=== PATIENT | female | born 1945 | race Caucasian/White ===

== ENCOUNTER 2016-11-10 22:56 | Inpatient (IN) | payer MEDICARE ==
--- NOTE | ~2016-11-10 | EGD ---
EGD REPORT [facility] [address] [address] NAME: HORTENSIA AGUSTIN : [birth year] STATUS : ADM [place]ell PAT#: [id number] AGE: 70 ADM/REG DATE : 11/10/16 MR#: [id number] REPORT SERV DATE: 11/12/16 DICTATED BY: BRICE FINK DATE: 11/12/16 REPORT STATUS : Draft TRANSCRIBED BY: [facility] DATE: 11/12/16 Endoscopy Center Patient Name: Hortensia Agustin Date of : 1945 Attending MD: BRICE FINK MD Procedure Date No Time: 11/12/2016 Procedure: Upper GI endoscopy Indications: Melena Referring MD: SCOTT DIAZ Medicines: Monitored Anesthesia Care Complications: No immediate complications. Estimated blood loss: Minimal. Procedure: Pre-Anesthesia Assessment: - ASA Grade Assessment: III - A patient with severe systemic disease. After obtaining informed consent, the endoscope was passed under direct vision. Throughout the procedure, the patient's blood pressure, pulse, and oxygen saturations were monitored continuously. The GIF [id number] was introduced through the mouth, and advanced to the second part of duodenum. The upper GI endoscopy was accomplished without difficulty. The patient tolerated the procedure well. Findings: The examined esophagus was normal. The entire examined stomach was normal. Clotted blood was found in the duodenal bulb. Lavage of the area was performed using copious amounts of sterile water, resulting in clearance with excellent visualization. Despite a prolonged search > 30 minutes no source was found. No AVMs, ulcers, erosions or Dieulafoy lesions seen. No blood coming from the ampulla. The exam was otherwise without abnormality. Impression: - Blood in the duodenal bulb but a source could not be found. - The examination was otherwise normal. Recommendation: - Return patient to [facility] for [facility] care. - Repeat the upper endoscopy tomorrow for retreatment. Procedure Code(s): --- Professional --- 67972, Esophagogastroduodenoscopy, flexible, transoral; diagnostic, including collection of specimen(s) by brushing or washing, when performed (separate procedure) EGD REPORT [facility] [address] [facility] [place] [address] NAME: HORTENSIA AGUSTIN : [birth year] STATUS : ADM Lowell PAT#: [id number] AGE: 70 ADM/REG DATE : 11/10/16 MR#: [id number] REPORT SERV DATE: 11/12/16 DICTATED BY: BRICE FINK DATE: 11/12/16 REPORT STATUS : Draft TRANSCRIBED BY: [employer] DATE: 11/12/16 Diagnosis Code(s): --- Professional --- K92.2, Gastrointestinal hemorrhage, unspecified K92.1, Melena CPT copyright 2013 [employer]. All rights reserved. The codes documented in this report are preliminary and upon mortgage broker review may be revised to meet current compliance requirements. Brice Fink MD BRICE FINK MD 11/12/2016 11:27 AM This report has been signed electronically. Number of Addenda: 0 Note Initiated On: 11/12/2016 10:28 AM Scope Withdrawal Time 0 hours 0 minutes 0 seconds [address] [facility] [address] [place] [address]
--- NOTE | ~2016-11-10 | CN ---
Consultation Report [facility] [address] [place]. [address] NAME: MINDA AGUSTIN : [birth year] STATUS : ADM Lowell PAT#: [id number] AGE: 70 ADM/REG DATE : 11/10/16 MR#: [id number] REPORT SERV DATE: 11/11/16 DICTATED BY: FANNIE SORTO DATE: 11/11/16 REPORT STATUS : Draft TRANSCRIBED BY: MODL DATE: 11/11/16 GI CONSULTATION DATE OF CONSULTATION: 11/11/2016 REASON FOR CONSULTATION: Evaluation and management of dark tarry stools and acute blood loss anemia. HISTORY OF PRESENT ILLNESS: Ms Agustin is a 70-year-old female patient, known to Dr. Jenny Mi, as well as sees her nurse practitioner, Jose Maldonado in the office, who has a history of GI bleeding, history of diverticulosis, as well as AVMs, who presented to [facility] after she was seen by her primary care physician, Dr. Ricci. She states that for about three days, she has been seeing dark black stools, as well as she has experienced progressive shortness of breath with exertional dyspnea, as well as fatigue. She has had some mild nausea, but no emesis. She states that her bowel movements are roughly two times a day that they have turned very black and dark. She does not state tarry. She denies any hematochezia. She has a history of GI bleed in the past. She was last seen by Dr. Mi in August of 2016, where on September 01, she underwent an EGD, indication for that exam was melena. She had a findings of a regular Z-line at 40 cm, which was biopsied. She had a hiatal hernia, congestive gastropathy, and normal duodenum. She underwent colonoscopy the same day showing diverticulosis in the entire examined colon, diminutive polyp at the hepatic flexure removed, four nonbleeding colonic angioectasias that were treated with thermal therapy, normal examined ilium and internal hemorrhoids. Pathology from that exam on the EGD, the biopsy shows squamous and columnar-lined mucosa with moderate nongranulomatous chronic inflammation. No malignancy, dysphagia, or intestinal metaplasia or eosinophilia found. Hepatic flexure biopsy showed nonneoplastic mucosa with no adenoma being identified. She was last seen in our office in September of 2016. She had lab work done with a hemoglobin in our office, at that time being 12.8, hematocrit 38.2. In review of notes that the indication is anemia recurred and tarry stools, she would need a small-bowel capsule endoscopy. Presently, the patient's hemoglobin on admission was 8.2; she has dropped to her lowest point of 7; presently she is 7.1. She is still extremely fatigued. She denies any nausea at present. She has had no abdominal pain. No heartburn, indigestion, or reflux. I have discussed with her that we will plan on pursuing EGD with small-bowel capsule exam tomorrow on the . Risks, benefits, alternatives, and complications were detailed for her to include, but not limited to risk of bleeding, perforation, infection, reaction to medications with cardiac and pulmonary side effects. She does state that roughly around three years ago, she had similar symptoms and was seen at [place] and she did have a capsule endoscopy then, she reports as being negative. PAST MEDICAL HISTORY: Positive for diverticulosis, colon polyps, GI bleed, hypertension, hyperlipidemia, sleep apnea, GERD, hypertrophic cardiomyopathy, cardiac murmur. She is status post AICD pacemaker, back surgery, abdominal hysterectomy, and cataract surgery. ALLERGIES: PENICILLIN, MORPHINE, AND IBUPROFEN. Consultation Report [address] [place]. [address] NAME: MINDA AGUSTIN : [birth year] STATUS : ADM Lowell PAT#: [id number] AGE: 70 ADM/REG DATE : 11/10/16 MR#: [id number] REPORT SERV DATE: 11/11/16 DICTATED BY: FANNIE SORTO DATE: 11/11/16 REPORT STATUS : Draft TRANSCRIBED BY: ANA DATE: 11/11/16 HOME MEDICATIONS: Vitamin C, aspirin, atenolol, vitamin D, vitamin B12, Miladis, Lasix, Lopid, omeprazole, Zofran, potassium chloride, Phenergan, and tramadol. SOCIAL HISTORY: No alcohol, tobacco, or illicits. Past history of tobacco. She is . FAMILY HISTORY: Noncontributory from a GI standpoint. REVIEW OF SYSTEMS: A ten-point review of systems obtained. Pertinent positives being addressed in the history of present illness. PHYSICAL EXAMINATION: VITAL SIGNS: Temperature is 97.7, pulse 84, respirations 18, and blood pressure 102/52. NEURO: Reveals an alert, female, resting in bed with no focal deficits. GENERAL: Cooperative. She is in mild distress secondary to weakness, as well as some nausea. HEAD, EARS, EYES, NOSE, AND THROAT: Anicteric. Pupils are equal, round, reactive to light and accommodation. Normocephalic and atraumatic. NECK: No JVD. No palpable nodes. LUNGS: Diminished in the bases. Clear in the upper lobes. Normal respiratory effort exhibited. Equal expansion. CARDIOVASCULAR SYSTEM: Regular rate and rhythm, however, 3/6 murmur is auscultated without rubs or gallops. ABDOMEN: Soft, obese, nondistended, nontender. No rebound. No guarding. No organomegaly appreciated on exam. EXTREMITIES: No edema. Normal distal pulses. SKIN: Warm, dry, and intact. PERTINENT LABORATORY DATA: Sodium 144, potassium 3.8. BUN is 23, creatinine is 0.68. White count 5.4, hemoglobin 7.1, hematocrit 21.7, and platelet count 174. INR 1.1. ASSESSMENT: 1. Melena with gastrointestinal bleeding, as well as history of gastrointestinal bleed. She does have a history of colonic angioectasias and diverticular disease. Must rule out gastric and/or small bowel arteriovenous malformations. 2. Acute blood loss anemia. Hemoglobin in September of 2016, 12.8, presently on admission; she was 8.2, which has dropped to 7. 3. Weakness and exertional shortness of breath secondary to #2. 4. History of hypertrophic cardiomyopathy. PLAN: 1. EGD with small-bowel capsule endoscopy on the . 2. We will give her Mag citrate x2. 3. Clear liquid diet. N.p.o. after midnight. 4. Transfuse unit of packed red blood cells. Follow the Lasix. Consultation Report [id number] [facility] [place]. [address] NAME: MINDA AGUSTIN : [birth year] STATUS : ADM Lowell PAT#: [id number] AGE: 70 ADM/REG DATE : 11/10/16 MR#: [id number] REPORT SERV DATE: 11/11/16 DICTATED BY: FANNIE SORTO DATE: 11/11/16 REPORT STATUS : Draft TRANSCRIBED BY: DARRIONL DATE: 11/11/16 5. We will follow labs, as well as H and H, and transfuse if needed. DESIREE/ANA Fannie NELDA Espinoza / [id number] CC: MD Meka Max M.D.
--- NOTE | ~2016-11-10 | HP ---
History And Physical [facility] [address] [place]. [address] NAME: MINDA AGUSTIN : [birth year] STATUS : ADM Lowell PAT#: [id number] AGE: 70 ADM/REG DATE : 11/10/16 MR#: [id number] REPORT SERV DATE: 11/11/16 DICTATED BY: YAHAIRA UMANZOR DATE: 11/10/16 REPORT STATUS : Draft TRANSCRIBED BY: MODMike DATE: 11/10/16 DATE OF ADMISSION: 11/10/2016 POINT OF ENTRY: [facility] Emergency Department. PRIMARY CARE PHYSICIAN: Meka Ricci M.D. PRIMARY CERT OCCUPATIONAL THERAPY ASST: Dr. Mi. PRIMARY GRAIN COMBINE DRIVER: Formerly Dr. French, now Dr. Moise. CHIEF COMPLAINT: Weakness, abnormal labs. HISTORY OF PRESENT ILLNESS: Ms. Agustin is a 70-year-old female with history of hypertension, hyperlipidemia, known history of diverticulosis with prior GI bleeds in the past as well as history of hypertrophic cardiomyopathy, status post AICD insertion, who presents to the emergency department today at the assistance of her primary care physician for abnormal labs. The patient states that she was out of town recently, working on an but not doing any strenuous activity, and for the past three days, she has noticed progressive worsening weakness, fatigue, as well as dyspnea on exertion. Incidentally, during that same time, she has also noticed a three-day history of dark, almost black-colored stools, but denies any lynn hematochezia or melena. She returned back to [place] and scheduled an appointment with her primary care physician and saw her on Tuesday. Labs were drawn, and they were concerning for low hemoglobin and hematocrit, compared to her baseline concerning for possible GI bleed and she was instructed to present to the emergency department. Initial evaluation in the emergency department notable for a hemoglobin of 8.2, elevated BUN and creatinine ratio consistent with a GI bleed. Occult stool was not ordered by the ER physician. It is currently pending. She was subsequently admitted to the Hospitalist Service for further evaluation and management. She denies any recent fevers, night sweats, chills, chest pain, palpitations, cough, sputum production, abdominal pain, nausea, vomiting, diarrhea, constipation, dysuria, or lower extremity edema. REVIEW OF SYSTEMS: Comprehensive review of systems otherwise negative unless listed in history of present illness. PREVIOUS MEDICAL HISTORY: 1. Hypertension. 2. Hyperlipidemia. History And Physical [address] [place]. [address] NAME: MINDA AGUSTIN : [birth year] STATUS : ADM Lowell PAT#: [id number] AGE: 70 ADM/REG DATE : 11/10/16 MR#: [id number] REPORT SERV DATE: 11/11/16 DICTATED BY: YAHAIRA UMANZOR DATE: 11/10/16 REPORT STATUS : Draft TRANSCRIBED BY: ANA DATE: 11/10/16 3. Diverticulosis. 4. Obstructive sleep apnea. 5. Gastroesophageal reflux disease. 6. Prior history of GI bleed, most recent being 07/2016 at [facility]. 7. Hypertrophic cardiomyopathy, status post AICD insertion. SURGICAL HISTORY: 1. Back surgery. 2. Abdominal hysterectomy. 3. Cataract surgery. 4. AICD. ALLERGIES: PENICILLIN, MORPHINE, AND IBUPROFEN. HOME MEDICATIONS: 1. Vitamin C 500 mg daily p.r.n. 2. Aspirin 81 mg daily. 3. Atenolol 50 mg at bedtime. 4. Vitamin D 1000 units daily. 5. Vitamin B12 500 mcg daily. 6. Miladis 180 mg daily. 7. Lasix 40 mg daily p.r.n. 8. Lopid 600 mg b.i.d. 9. Omeprazole 20 mg at bedtime. 10.Zofran 4 mg daily p.r.n. 11.Potassium chloride 20 mEq daily p.r.n. 12.Phenergan 25 mg daily. 13.Tramadol 50 mg b.i.d. p.r.n. 14.Antibiotic for stye, no longer on antibiotics. SOCIAL HISTORY: Denies any tobacco, alcohol, or illicits. She is a former smoker. FAMILY MEDICAL HISTORY: Mother with history of stroke. Father with history of coronary artery disease. Siblings with history of stroke. LABS AND IMAGIN. White count is 8.7, hemoglobin is 8.2, hematocrit is 23.9, and platelet count is 192. INR is 1.1. 2. Sodium is 142, potassium 4.3, chloride 105, carbon dioxide 28, BUN 29, creatinine 0.96, glucose is 104, calcium is 9.0, protein 7.3, albumin 3.7, bilirubin is 0.3, ALT is 23, AST is 37, alkaline phosphatase is 97. 3. The patient underwent EGD and colonoscopy on 08/24/2016, which was notable for congestive gastropathy as well as multiple wide-mouth diverticula, occasional polyps, as well as for non-bleeding colonic angioectasias treated with thermal therapy. PHYSICAL EXAMINATION: VITAL SIGNS: Temperature is 98.7 degrees Fahrenheit, pulse is 95, respirations 16, History And Physical [address] [id number] [place]. [address] NAME: MINDA AGUSTIN : [birth year] STATUS : ADM Lowell PAT#: [id number] AGE: 70 ADM/REG DATE : 11/10/16 MR#: [id number] REPORT SERV DATE: 11/11/16 DICTATED BY: YAHAIRA UMANZOR DATE: 11/10/16 REPORT STATUS : Draft TRANSCRIBED BY: MODL DATE: 11/10/16 saturating 97% on room air, and blood pressure 111/57. On recheck, blood pressure is now 120/71, pulse of 82. GENERAL: The patient is awake, alert, in no acute distress, resting comfortably in bed. She is a well-developed, well-nourished, elderly female. HEENT: Atraumatic and normocephalic. Moist mucous membranes. Pupils equal, round, reactive to light and accommodation. Extraocular eye movements are intact. No scleral icterus. NECK: No jugular venous distention. No carotid bruits. CARDIAC: Regular rate and rhythm. She has a 3/6 systolic murmur, heard best over left lower sternal border. LUNGS: Clear to auscultation bilaterally. No wheezes, rhonchi, or crackles. ABDOMEN: Soft, nontender, nondistended with good bowel sounds. No rebound, guarding, or rigidity. EXTREMITIES: Warm and perfused. No cyanosis, clubbing, or edema. SKIN: Warm and dry. PSYCH: Affect appropriate. NEUROLOGIC: Alert and oriented x3. Cranial nerves 2 through 12 grossly intact. Speech is normal. Gait not assessed. ASSESSMENT: Ms. Agustin is a 70-year-old female who presents with a few day history of weakness, fatigue, shortness of breath, and dyspnea on exertion, and found to have abnormal hemoglobin and hematocrit, concerning for GI bleed. PROBLEM LIST: 1. GI bleed. 2. Acute blood loss anemia. 3. Weakness, fatigue, and shortness of breath. 4. History of hypertrophic cardiomyopathy. PLAN: 1. GI bleed. Occult stool is pending at the time of dictation, but given description of dark-colored stools, I suspect this might be an upper GI bleed. However, patient does have a history of diverticulosis as well as colonic angioectasias. We will place the patient on Protonix drip. Hold the patient's aspirin. Consult Dr. Mi, the patient's primary oncology rn, for assistance, and we will check q.6 hours hemoglobin and hematocrits. 2. Acute blood loss anemia. I do not have recent baseline for her except for something from 2014, but it has been at least 4 to 5 point drop since then. We will check q.6 hours hemoglobin and hematocrit and transfuse for hemoglobin less than 7. 3. Weakness, shortness of breath, and dyspnea on exertion. I suspect this is all due to symptomatic anemia from her GI bleed and acute blood loss anemia. However, given her history of HCM, we will check an EKG, chest x-ray, as well as consult Cardiology for assistance as she is scheduled to see Dr. Moise in clinic tomorrow. 4. History of HCM. Again, as mentioned above, we will consult Cardiology as well as check EKG and chest x-ray. The patient currently appears euvolemic at this time. 5. DVT prophylaxis. TEDs and SCDs given bleeding. CODE STATUS: The patient wishes to be full code. History And Physical [address] [address] NAME: MINDA AGUSTIN : [birth year] STATUS : ADM [place] PAT#: [id number] AGE: 70 ADM/REG DATE : 11/10/16 MR#: [id number] REPORT SERV DATE: 11/11/16 DICTATED BY: YAHAIRA UMANZOR DATE: 11/10/16 REPORT STATUS : Draft TRANSCRIBED BY: ANA DATE: 11/10/16 DALLIN/ANA Yahaira Umanzor MD / [id number] CC: MD Meka Max M.D. John Carter Hemphill, MD Colleen Schmitt, M.D.
--- NOTE | ~2016-11-10 | DS ---
Discharge Summary [facility] [address] [place]. [address] NAME: MINDA AGUSTIN : 49 STATUS : DIS IN PAT#: [id number] AGE: 70 ADM/REG DATE : 11/10/16 MR#: [id number] REPORT SERV DATE: 11/18/16 DICTATED BY: AL LEIJA DATE: 11/17/16 REPORT STATUS : Draft TRANSCRIBED BY: MODL DATE: 11/17/16 ADMISSION DATE: 11/10/2016 DISCHARGE DATE: 11/17/2016 Ms. Agustin is a 70-year-old female with a history of hypertension, hypertrophic cardiomyopathy and normocytic anemia, who presented to the emergency room with a complaint of weakness and abnormal labs. For further details, please refer to H and P dictated by Dr. Ponce on 11/11/2016. HOSPITAL COURSE: Please refer to interim discharge summary, dictated by Dr. Underwood on 11/16/2016. I assumed care of the patient, 11/16/2016. At the time of my visit, the patient was already status post with upper endoscopy, which noted no evidence of a bleed and she was also status post a video endoscopy, which noted AVM. The patient had an upper device assisted enteroscopy without fluoroscopy by GI with AVM bleed noted at the junction between the duodenum and jejunum. The lesion was cauterized and a clip placed. The patient tolerated the procedure well. She was returned to the medical floor where she remained hemodynamically stable. The patient was started on clear liquid diet, which she has tolerated. Her hemoglobin has remained stable with no further evidence of bleed. Given hemodynamic stability and completion of workup, the patient will be discharged home to follow up with her primary care physician. Plan has been discussed with patient who voices understanding. All other information noted, and the interim discharge summary remains the same. DISCHARGE MEDICATIONS: The patient discharged on her home medications with no new additions. Discharge medications include; atenolol 50 mg p.o. at bedtime, vitamin B12, 500 mcg p.o. daily, vitamin D 3000 units p.o. every morning; gemfibrozil 600 mg p.o. twice a day, Miladis 180 mg p.o. every morning, omeprazole 20 mg p.o. at bedtime, aspirin 81 mg p.o. every morning, potassium 20 mg mEq p.o. daily p.r.n., furosemide 40 mg g p.o. daily p.r.n. DISCHARGE EXAMINATION: VITAL SIGNS: Blood pressure 100/55, pulse of 81, respirations 20, O2 saturation 98% on room air, and temperature 97.8. GENERAL: The patent is sitting in chair, in no acute distress. Appears stated age. Eating breakfast. HEENT: Normocephalic and atraumatic. Extraocular motors intact. Moist oral mucosa. No conjunctival pallor noted. NECK: Trachea midline and symmetric. No JVD present. No thyromegaly noted. No lymphadenopathy noted. CHEST: Nontender to palpation. CARDIOVASCULAR: Positive 3/6 holosystolic murmur noted in the precordium. Regular rate and rhythm. LUNGS: Clear to auscultation bilaterally. ABDOMEN: Positive bowel sounds. Nontender. Nondistended. No masses palpated. EXTREMITIES: No cyanosis, no clubbing, no edema. NEURO: Alert and oriented x3. No focal deficits appreciated. DISPOSITION: The patient will be discharged home to follow up with primary care physician. Discharge Summary [address] [address] NAME: MINDA AGUSTIN : [birth year] STATUS : DIS IN PAT#: [id number] AGE: 70 ADM/REG DATE : 11/10/16 MR#: [id number] REPORT SERV DATE: 11/18/16 DICTATED BY: AL LEIJA DATE: 11/17/16 REPORT STATUS : Draft TRANSCRIBED BY: ANA DATE: 11/17/16 ACTIVITY: As tolerated. DIET: Regular diet. Greater than 30 minutes was spent coordinating care, dictation of note, medication reconciliation, and coordinating discharge. RAYMUNDO/ANA Al Leija MD / [id number] CC: MD Meka Vaz M.D.
--- NOTE | ~2016-11-10 | IDS ---
Interim Discharge Summary [facility] [address] [place]. [address] NAME: MINDA QUIROGA : [birth year] STATUS : ADM [place] PAT#: [id number] AGE: 70 ADM/REG DATE : 11/10/16 MR#: [id number] REPORT SERV DATE: 11/16/16 DICTATED BY: CARLEY CASTRO DATE: 11/15/16 REPORT STATUS : Draft TRANSCRIBED BY: MODMike DATE: 11/15/16 ADMISSION DATE: 11/10/2016 DISCHARGE DATE: DATE OF DISCHARGE: Pending. CURRENT DIAGNOSES: 1. Acute gastrointestinal bleed. 2. Normocytic anemia. 3. Acute blood loss anemia. 4. Hypertension. 5. Hypertrophic cardiomyopathy, status post AICD placement. 6. Obstructive sleep apnea, on CPAP. 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 CURRENT CONDITION: Stable. HISTORY OF PRESENT ILLNESS: For detailed HPI, please make reference to Dr. Matti Alarcon's on 11/11/2016. In brief, this is a 70-year-old female with medical history of hypertension, hyperlipidemia, hypertrophic cardiomyopathy, who has history of diverticulosis with recurrent GI bleed, who presented to the emergency room of [facility] with complaints of passing black stools. In the ER, was noted to have blood pressure of 111/57, saturating 97% on room air. Physical exam was significant for 3/6 systolic murmur. An assessment of GI bleed was made, acute blood loss anemia as well as hypertrophic cardiomyopathy status post AICD in the emergency room and was admitted to the hospital for further evaluation. HOSPITAL COURSE: 1. Gastrointestinal bleed. The patient's hemoglobin dropped to 6.1, received 2 units of blood transfusion. The patient's hemoglobin subsequently improved and has remained stable. The patient underwent an EGD that shows blood in the duodenal bulb, but source could not be found. It was recommended for the patient to undergo a video endoscopy. The patient subsequently underwent video endoscopy on 11/13/2016 that shows the presence of active bleeding from several spots between 40 minutes on 20 minutes into the study with additional spots with likely AVM seen in more distal portion of the small bowel. The patient was recommended to have a push enteroscopy or antegrade balloon enteroscopy to see if the area of bleeding can be reached. The patient will be undergoing a small bowel enteroscopy that will be performed by Dr. Pleitez in the a.m. 2. Normocytic anemia. The patient's hemoglobin posttransfusion remained stable at 6.0. 3. HOCM, status post AICD. The patient reported some shortness of breath. An echocardiogram has been ordered. No evidence of chest pain. No evidence of acute decompensated heart failure at this time. The patient's EKG has remained essentially within normal rate. DISCHARGE DISPOSITION: Pending further evaluation by GI. Interim Discharge Summary [address] [place]. [address] NAME: MINDA QUIROGA : 49 STATUS : ADM [place] PAT#: [id number] AGE: 70 ADM/REG DATE : 11/10/16 MR#: [id number] REPORT SERV DATE: 11/16/16 DICTATED BY: CARLEY CASTRO DATE: 11/15/16 REPORT STATUS : Draft TRANSCRIBED BY: ANA DATE: 11/15/16 MARSHAL/ANA Carley Castro MD / [id number] CC: MD Meka Max M.D.
--- NOTE | ~2016-11-10 | OP ---
Record Of Operation [facility] [address] [place]. [address] NAME: MINDA QUIROGA : [birth year] STATUS : ADM [place] PAT#: [id number] AGE: 70 ADM/REG DATE : 11/10/16 MR#: [id number] REPORT SERV DATE: 11/13/16 DICTATED BY: YAHAIRA GOODE DATE: 11/13/16 REPORT STATUS : Draft TRANSCRIBED BY: MODL DATE: 11/13/16 DATE OF PROCEDURE: INDICATION: Anemia. Blood seen in the duodenal bulb on prior examination without bleeding site identified. CONSENT: Informed consent was obtained from the patient. The risks and benefits of the procedure as well as possible complications of bleeding, infection, perforation, or allergic reaction to the medicine were described in detail. Questions were entertained and answered. Patient understands and agrees to proceed. PROCEDURE: Esophagogastroduodenoscopy with PillCam placement. PROCEDURE IN DETAIL: The patient was laid in left lateral decubitus position. After sedation was obtained, GIF endoscope was lubricated and inserted into the mouth, driven through the esophagus, stomach, and first and second portion of duodenum. On slow withdrawal, first and second portion duodenum was normal. Pylorus was normal. Antrum, body, and fundus appeared normal. Retroflexion was performed in the fundus. No cardia masses were noted. Scope was straightened and withdrawn to the GE junction, which was normal as was the lower, mid, and upper esophagus. The scope was withdrawn. Patient appears to tolerate the procedure well. PillCam was deployed using an upper endoscope into the duodenum. The scope was withdrawn. Patient appears to have tolerated the procedure well. IMPRESSION: 1. Normal EGD. 2. Status post PillCam deployment in the duodenum. RECOMMENDATION: 1. Continue to monitor hemoglobin and hematocrit and transfuse as needed. 2. Follow up PillCam results. JORGE/ANA Yahaira Goode M.D. / [id number] CC: MD Meka Max M.D.
--- NOTE | ~2016-11-10 | EGD ---
EGD REPORT [facility] [address] [place]. [address] NAME: HORTENSIA AGUSTIN : [birth year] STATUS : ADM [place] PAT#: [id number] AGE: 70 ADM/REG DATE : 11/10/16 MR#: [id number] REPORT SERV DATE: 11/16/16 DICTATED BY: WILFRIDO VALDES DATE: 11/16/16 REPORT STATUS : Draft TRANSCRIBED BY: [facility] DATE: 11/16/16 Endoscopy Center Patient Name: Hortensia Agustin Date of : 1945 Attending MD: WILFRIDO VALDES, Procedure Date No Time: 11/16/2016 Procedure: Upper Device-Assisted Enteroscopy without Fluoroscopy Indications: Melena, GI bleeding source not documented by previous video capsule endoscopy Referring MD: GALO CAN MD Medicines: Monitored Anesthesia Care Complications: No immediate complications. Estimated blood loss: None. Procedure: Pre-Anesthesia Assessment: - ASA Grade Assessment: III - A patient with severe systemic disease. After obtaining informed consent, the endoscope was passed under direct vision using the balloon-assisted technique. Throughout the procedure, the patient's blood pressure, pulse, and oxygen saturations were monitored continuously. The SIF [id number] [id number] was introduced through the mouth and advanced to the proximal jejunum. After obtaining informed consent, the endoscope was passed under direct vision using the balloon-assisted technique. Throughout the procedure, the patient's blood pressure, pulse, and oxygen saturations were monitored continuously. The PCF H190L [id number] was introduced through the mouth and advanced to the proximal jejunum. Findings: The esophagus was normal. The stomach was normal. Hematin (altered blood/naaqob-tmntte-rfxr material) was found in the third part of the duodenum and in the fourth part of the duodenum. One angioectasia with bleeding was found in the proximal jejunum just distal to ligament of treitz. Coagulation for hemostasis using argon plasma at 1 liter/minute and 30 silva was successful. To prevent bleeding post-intervention, a hemostatic clip was successfully placed. There was no bleeding at the end of the procedure. Red blood was found in the proximal jejunum. Impression: - Normal esophagus. - Normal stomach. - Blood at 3rd part of the duodenum and at 4th part of the duodenum. - One bleeding angioectasia in the jejunum. Treated with EGD REPORT [place] [id number] [facility] [place]. [address] NAME: HORTENSIA AGUSTIN : [birth year] STATUS : ADM [place] PAT#: [id number] AGE: 70 ADM/REG DATE : 11/10/16 MR#: [id number] REPORT SERV DATE: 11/16/16 DICTATED BY: WILFRIDO VALDES DATE: 11/16/16 REPORT STATUS : Draft TRANSCRIBED BY: [employer] DATE: 11/16/16 thermal therapy. SKIP. - Jejunal blood. Recommendation: - Clear liquid diet. - Continue present medications. - Return patient to [facility] for ongoing care. Procedure Code(s): --- Professional --- 52075, Small intestinal endoscopy, enteroscopy beyond second portion of duodenum, not including ileum; with control of bleeding (eg, injection, bipolar cautery, unipolar cautery, laser, heater probe, stapler, plasma avionics repair technician) Diagnosis Code(s): --- Professional --- K92.2, Gastrointestinal hemorrhage, unspecified K55.21, Angiodysplasia of colon with hemorrhage K92.1, Melena CPT copyright 2013 [employer]. All rights reserved. The codes documented in this report are preliminary and upon bingo worker review may be revised to meet current compliance requirements. WILFRIDO VALDES, 11/16/2016 11:07 AM Number of Addenda: 0 Note Initiated On: 11/16/2016 10:17 AM Scope Withdrawal Time 0 hours 0 minutes 0 seconds [address] [phone]
[2016-11-10 18:16] LABS: BASOPHILS 0.1 %; BASOPHILS ABSOLUTE 0.01 10/3/uL (0.0-0.16); EOSINOPHILS 2.5 %; EOSINOPHILS ABSOLUTE 0.22 10/3/uL (0.0-0.53); IMMATURE GRANULOCYTES 0.2 %; IMMATURE GRANULOCYTES ABSOLUTE 0.02 10/3/uL (0.0-0.11); LYMPHOCYTES 28.6 %; LYMPHOCYTES ABSOLUTE 2.48 10/3/uL (0.67-4.30); MEAN CORPUS HGB CONC 34.3 g/dL (32.0-36.0); MEAN CORPUSCULAR HEMOGLOB 33.7 pg (26.0-34.0); MEAN PLATELET VOLUME 8.4 fL (9.2-13.0); MONOCYTES ABSOLUTE 0.61 10/3/uL (0.21-1.20); NEUTROPHILS 61.6 %; NEUTROPHILS ABSOLUTE 5.33 10/3/uL (2.02-8.40); PLATELET COUNT 192 10/3/uL (150-400); RBC DISTRIBUTION WIDTH 14.6 % (12.0-16.0); WHITE BLOOD CELLS 8.7 10/3/uL (4.5-10.5)
[2016-11-10 18:18] LABS: HEMATOCRIT 23.9 % (36.0-48.0); HEMOGLOBIN 8.2 g/dL (12.0-16.0); MANUAL DIFF NO %; MEAN CORPUSCULAR VOLUME 98.4 fL (80-100); RED CELL COUNT 2.43 10/6/uL (4.0-5.6)
[2016-11-10 18:26] LABS: INTERNATIONAL NORMAL RATI 1.1 UNITS (-); PARTIAL THROMBO TIME 30.6 SEC (22.5-37.2); PROTIME (NOT ORD) 14.4 SEC (12.0-14.5)
[2016-11-10 18:35] LABS: ALBUMIN 3.7 G/DL (3.5-5.0); ALKALINE PHOSPHATASE 97 U/L (45-117); BUN (BLOOD UREA NITROGEN) 29 MG/DL (6-23); CHLORIDE, SERUM 105 MMOL/L (96-112); CO2 (CARBON DIOXIDE) 28 MMOL/L (24-34); CREATININE 0.96 MG/DL (0.55-1.02); GFR AFRICAN AMERICAN 70 ML/MIN (>=60); GFR NON AFRICAN AMERICAN 61 ML/MIN (>=60); GLOBULIN 3.6 G/DL (2.5-4.1); GLUCOSE, SERUM 104 MG/DL (60-99); POTASSIUM, SERUM 4.3 MMOL/L (3.5-5.3); SGOT(AST) 37 U/L (5-40); SGPT(ALT) 23 U/L (5-65); SODIUM, SERUM 142 MMOL/L (135-148); TOTAL BILIRUBIN 0.3 MG/DL (0-1.2); TOTAL PROTEIN 7.3 G/DL (6.0-8.5)
[~2016-11-10 22:56] MED LIST: ACET500CAP PO; ALLEGRA180 PO; AMOXIL500 MG PO; ATEN25 PO; ATEN50 PO; FERROUS SULF325 M1 PO; FISH OIL300 MG PO; FISH-EPA1000 MG PO; HALF81 PO; KLOR-CON M2020 MEQ PO; L-LYSINE ACE500 MG PO; L20 PO; L40 PO; LOPID6 PO; METPAKSF PO; NASONEX NAS; NORCO1 TA1 PO; OMEGA 3 OTC PO; PR25 PO; PRILO PO; PRIN20 PO; PT DENIES ANY MEDS; REFRESH OP; T PO; ULTRAM50 PO; VENTOLIN HFA INH; VITAMIN B 12 PO; VITAMIN D31000 UNIT PO; VITAMIN D400 UNI1 PO; VITC500 PO; ZOFRAN4 PO; [UNRECOGNIZED DRUG - CODE] PO
[2016-11-10] MEDS ORDERED: ATEN50 PO (23:09)
[2016-11-10] MEDS ORDERED: ASAB PO (23:10)
[2016-11-10] MEDS ORDERED: KDUR20 PO (23:10)
[2016-11-10] MEDS ORDERED: LOPID6 PO (23:10)
[2016-11-10] MEDS ORDERED: PRILO PO (23:10)
[2016-11-10] MEDS ORDERED: VITAMIN D31000 UNIT PO (23:11)
[2016-11-10] MEDS ORDERED: ALLEGRA180 PO (23:11)
[2016-11-10] MEDS ORDERED: ULTRAM50 PO (23:11)
[2016-11-10] MEDS ORDERED: L40 PO (23:11)
[2016-11-10] MEDS ORDERED: PR25 PO (23:12)
[2016-11-10] MEDS ORDERED: ZOFRAN4 PO (23:12)
[2016-11-10] MEDS ORDERED: VITC500 PO (23:13)
[2016-11-10] MEDS ORDERED: B12250T PO (23:13)
[2016-11-10] MEDS ORDERED: DORYX100 MG PO (23:14)
[2016-11-11 07:11] LABS: BASOPHILS 0.2 %; BASOPHILS ABSOLUTE 0.01 10/3/uL (0.0-0.16); EOSINOPHILS 2.8 %; EOSINOPHILS ABSOLUTE 0.15 10/3/uL (0.0-0.53); IMMATURE GRANULOCYTES 0.2 %; IMMATURE GRANULOCYTES ABSOLUTE 0.01 10/3/uL (0.0-0.11); LYMPHOCYTES 33.8 %; LYMPHOCYTES ABSOLUTE 1.82 10/3/uL (0.67-4.30); MEAN CORPUS HGB CONC 33.8 g/dL (32.0-36.0); MEAN CORPUSCULAR HEMOGLOB 33.7 pg (26.0-34.0); MEAN CORPUSCULAR VOLUME 99.5 fL (80-100); MEAN PLATELET VOLUME 8.6 fL (9.2-13.0); MONOCYTES 9.1 %; MONOCYTES ABSOLUTE 0.49 10/3/uL (0.21-1.20); NEUTROPHILS 53.9 %; NEUTROPHILS ABSOLUTE 2.91 10/3/uL (2.02-8.40); PLATELET COUNT 174 10/3/uL (150-400); RBC DISTRIBUTION WIDTH 14.9 % (12.0-16.0); RED CELL COUNT 2.08 10/6/uL (4.0-5.6); WHITE BLOOD CELLS 5.4 10/3/uL (4.5-10.5)
[2016-11-11 07:16] LABS: HEMATOCRIT 20.7 % (36.0-48.0)
[2016-11-11 07:17] LABS: MANUAL DIFF NO %
[2016-11-11 07:23] LABS: BUN (BLOOD UREA NITROGEN) 23 MG/DL (6-23); CHLORIDE, SERUM 111 MMOL/L (96-112); CO2 (CARBON DIOXIDE) 25 MMOL/L (24-34); CREATININE 0.68 MG/DL (0.55-1.02); GFR AFRICAN AMERICAN 104 ML/MIN (>=60); GFR NON AFRICAN AMERICAN 90 ML/MIN (>=60); GLUCOSE, SERUM 103 MG/DL (60-99); POTASSIUM, SERUM 3.8 MMOL/L (3.5-5.3); SODIUM, SERUM 144 MMOL/L (135-148)
[2016-11-11 08:39] LABS: HEMATOCRIT 21.7 % (36.0-48.0); HEMOGLOBIN 7.1 g/dL (12.0-16.0)
[2016-11-11 11:27] LABS: HEMATOCRIT 21.6 % (36.0-48.0); HEMOGLOBIN 7.1 g/dL (12.0-16.0)
[2016-11-11 17:19] LABS: HEMATOCRIT 24.3 % (36.0-48.0); HEMOGLOBIN 8.1 g/dL (12.0-16.0)
[2016-11-11 23:11] LABS: HEMATOCRIT 23.5 % (36.0-48.0); HEMOGLOBIN 7.9 g/dL (12.0-16.0)
[2016-11-12 05:46] LABS: CALCIUM, SERUM 7.9 MG/DL (8.5-10.4); CHLORIDE, SERUM 110 MMOL/L (96-112); CO2 (CARBON DIOXIDE) 26 MMOL/L (24-34); CREATININE 0.68 MG/DL (0.55-1.02); GFR AFRICAN AMERICAN 104 ML/MIN (>=60); GFR NON AFRICAN AMERICAN 90 ML/MIN (>=60); GLUCOSE, SERUM 97 MG/DL (60-99); PHOSPHORUS, SERUM 2.6 MG/DL (2.5-4.5); POTASSIUM, SERUM 4.2 MMOL/L (3.5-5.3); SODIUM, SERUM 144 MMOL/L (135-148)
[2016-11-12 05:52] LABS: ALBUMIN 2.9 G/DL (3.5-5.0); BUN (BLOOD UREA NITROGEN) 16 MG/DL (6-23)
[2016-11-12 06:01] LABS: INTERNATIONAL NORMAL RATI 1.2 UNITS (-); PROTIME (NOT ORD) 15.1 SEC (12.0-14.5)
[2016-11-12 06:13] LABS: BASOPHILS 0.2 %; BASOPHILS ABSOLUTE 0.01 10/3/uL (0.0-0.16); EOSINOPHILS ABSOLUTE 0.19 10/3/uL (0.0-0.53); HEMATOCRIT 21.7 % (36.0-48.0); HEMOGLOBIN 7.4 g/dL (12.0-16.0); IMMATURE GRANULOCYTES 0.6 %; IMMATURE GRANULOCYTES ABSOLUTE 0.04 10/3/uL (0.0-0.11); LYMPHOCYTES 24.4 %; LYMPHOCYTES ABSOLUTE 1.56 10/3/uL (0.67-4.30); MEAN CORPUS HGB CONC 34.1 g/dL (32.0-36.0); MEAN CORPUSCULAR HEMOGLOB 33.6 pg (26.0-34.0); MEAN CORPUSCULAR VOLUME 98.6 fL (80-100); MEAN PLATELET VOLUME 8.8 fL (9.2-13.0); MONOCYTES 8.6 %; MONOCYTES ABSOLUTE 0.55 10/3/uL (0.21-1.20); NEUTROPHILS 63.2 %; NEUTROPHILS ABSOLUTE 4.04 10/3/uL (2.02-8.40); NUCLEATED RED BLOOD CELLS 0.4 /100WBC (0-0); PLATELET COUNT 172 10/3/uL (150-400); RBC DISTRIBUTION WIDTH 15.8 % (12.0-16.0); WHITE BLOOD CELLS 6.4 10/3/uL (4.5-10.5)
[2016-11-12 06:18] LABS: MANUAL DIFF NO %
[2016-11-13 07:06] LABS: BASOPHILS 0 %; IMMATURE GRANULOCYTES 0.4 %; IMMATURE GRANULOCYTES ABSOLUTE 0.02 10/3/uL (0.0-0.11); LYMPHOCYTES 26.9 %; LYMPHOCYTES ABSOLUTE 1.35 10/3/uL (0.67-4.30); MEAN CORPUS HGB CONC 32.8 g/dL (32.0-36.0); MEAN CORPUSCULAR VOLUME 100.5 fL (80-100); MEAN PLATELET VOLUME 8.3 fL (9.2-13.0); MONOCYTES ABSOLUTE 0.55 10/3/uL (0.21-1.20); NEUTROPHILS 57.7 %; PLATELET COUNT 167 10/3/uL (150-400); RBC DISTRIBUTION WIDTH 16.4 % (12.0-16.0); RED CELL COUNT 1.97 10/6/uL (4.0-5.6)
[2016-11-13 07:09] LABS: HEMATOCRIT 19.8 % (36.0-48.0); HEMOGLOBIN 6.5 g/dL (12.0-16.0)
[2016-11-13 07:10] LABS: MANUAL DIFF NO %
[2016-11-13 07:16] LABS: BUN (BLOOD UREA NITROGEN) 16 MG/DL (6-23); CALCIUM, SERUM 7.8 MG/DL (8.5-10.4); CHLORIDE, SERUM 111 MMOL/L (96-112); CO2 (CARBON DIOXIDE) 26 MMOL/L (24-34); CREATININE 0.74 MG/DL (0.55-1.02); GFR AFRICAN AMERICAN 96 ML/MIN (>=60); GFR NON AFRICAN AMERICAN 83 ML/MIN (>=60); GLUCOSE, SERUM 96 MG/DL (60-99); PHOSPHORUS, SERUM 2.6 MG/DL (2.5-4.5); POTASSIUM, SERUM 4.2 MMOL/L (3.5-5.3); SODIUM, SERUM 146 MMOL/L (135-148)
[2016-11-13 13:53] LABS: HEMOGLOBIN 7.6 g/dL (12.0-16.0)
[2016-11-13 13:54] LABS: HEMATOCRIT 22.5 % (36.0-48.0)
[2016-11-14 00:46] LABS: HEMOGLOBIN 8.8 g/dL (12.0-16.0)
[2016-11-14 00:47] LABS: HEMATOCRIT 25.5 % (36.0-48.0)
[2016-11-14 05:08] LABS: BASOPHILS 0.4 %; BASOPHILS ABSOLUTE 0.02 10/3/uL (0.0-0.16); EOSINOPHILS 3.3 %; EOSINOPHILS ABSOLUTE 0.19 10/3/uL (0.0-0.53); HEMATOCRIT 24.6 % (36.0-48.0); HEMOGLOBIN 8.4 g/dL (12.0-16.0); IMMATURE GRANULOCYTES 0.2 %; IMMATURE GRANULOCYTES ABSOLUTE 0.01 10/3/uL (0.0-0.11); LYMPHOCYTES 32.9 %; LYMPHOCYTES ABSOLUTE 1.87 10/3/uL (0.67-4.30); MEAN CORPUS HGB CONC 34.1 g/dL (32.0-36.0); MEAN CORPUSCULAR HEMOGLOB 31.7 pg (26.0-34.0); MEAN PLATELET VOLUME 8.8 fL (9.2-13.0); MONOCYTES 8.5 %; MONOCYTES ABSOLUTE 0.48 10/3/uL (0.21-1.20); NEUTROPHILS 54.7 %; NEUTROPHILS ABSOLUTE 3.11 10/3/uL (2.02-8.40); PLATELET COUNT 175 10/3/uL (150-400); RBC DISTRIBUTION WIDTH 18.6 % (12.0-16.0); WHITE BLOOD CELLS 5.7 10/3/uL (4.5-10.5)
[2016-11-14 05:09] LABS: MANUAL DIFF NO %; MEAN CORPUSCULAR VOLUME 92.8 fL (80-100); RED CELL COUNT 2.65 10/6/uL (4.0-5.6)
[2016-11-14 05:26] LABS: BUN (BLOOD UREA NITROGEN) 18 MG/DL (6-23); CALCIUM, SERUM 7.9 MG/DL (8.5-10.4); CHLORIDE, SERUM 110 MMOL/L (96-112); CO2 (CARBON DIOXIDE) 26 MMOL/L (24-34); CREATININE 0.62 MG/DL (0.55-1.02); GFR AFRICAN AMERICAN 107 ML/MIN (>=60); GFR NON AFRICAN AMERICAN 93 ML/MIN (>=60); GLUCOSE, SERUM 87 MG/DL (60-99); PHOSPHORUS, SERUM 2.7 MG/DL (2.5-4.5); POTASSIUM, SERUM 4.3 MMOL/L (3.5-5.3); SGOT(AST) 32 U/L (5-40); SGPT(ALT) 18 U/L (5-65); SODIUM, SERUM 143 MMOL/L (135-148); TOTAL BILIRUBIN 0.6 MG/DL (0-1.2)
[2016-11-14 05:27] LABS: ALKALINE PHOSPHATASE 72 U/L (45-117)
[2016-11-14 09:53] LABS: HEMOGLOBIN 8.1 g/dL (12.0-16.0)
[2016-11-14 17:21] LABS: HEMATOCRIT 24.2 % (36.0-48.0); HEMOGLOBIN 8.3 g/dL (12.0-16.0)
[2016-11-14 22:14] LABS: HEMATOCRIT 23.8 % (36.0-48.0); HEMOGLOBIN 7.8 g/dL (12.0-16.0)
[2016-11-15 06:24] LABS: BASOPHILS 0.4 %; BASOPHILS ABSOLUTE 0.02 10/3/uL (0.0-0.16); EOSINOPHILS 4.4 %; HEMATOCRIT 23.4 % (36.0-48.0); IMMATURE GRANULOCYTES 0.2 %; IMMATURE GRANULOCYTES ABSOLUTE 0.01 10/3/uL (0.0-0.11); LYMPHOCYTES 35.7 %; LYMPHOCYTES ABSOLUTE 1.64 10/3/uL (0.67-4.30); MANUAL DIFF NO %; MEAN CORPUS HGB CONC 34.2 g/dL (32.0-36.0); MEAN CORPUSCULAR HEMOGLOB 32.1 pg (26.0-34.0); MEAN PLATELET VOLUME 8.7 fL (9.2-13.0); MONOCYTES 9.2 %; MONOCYTES ABSOLUTE 0.42 10/3/uL (0.21-1.20); NEUTROPHILS 50.1 %; PLATELET COUNT 180 10/3/uL (150-400); RBC DISTRIBUTION WIDTH 18.7 % (12.0-16.0); RED CELL COUNT 2.49 10/6/uL (4.0-5.6); WHITE BLOOD CELLS 4.6 10/3/uL (4.5-10.5)
[2016-11-15 06:27] LABS: BUN (BLOOD UREA NITROGEN) 17 MG/DL (6-23); CALCIUM, SERUM 8.4 MG/DL (8.5-10.4); CHLORIDE, SERUM 110 MMOL/L (96-112); CO2 (CARBON DIOXIDE) 26 MMOL/L (24-34); CREATININE 0.67 MG/DL (0.55-1.02); GFR AFRICAN AMERICAN 105 ML/MIN (>=60); GFR NON AFRICAN AMERICAN 90 ML/MIN (>=60); GLUCOSE, SERUM 92 MG/DL (60-99); PHOSPHORUS, SERUM 3.5 MG/DL (2.5-4.5); POTASSIUM, SERUM 3.9 MMOL/L (3.5-5.3); SODIUM, SERUM 145 MMOL/L (135-148)
[2016-11-15 10:35] LABS: HEMATOCRIT 24.7 % (36.0-48.0); HEMOGLOBIN 8.2 g/dL (12.0-16.0)
[2016-11-15 17:19] LABS: HEMATOCRIT 23.7 % (36.0-48.0); HEMOGLOBIN 7.9 g/dL (12.0-16.0)
[2016-11-15 21:53] LABS: HEMATOCRIT 24.3 % (36.0-48.0); HEMOGLOBIN 7.9 g/dL (12.0-16.0)
[2016-11-16 06:01] LABS: BASOPHILS 0.2 %; BASOPHILS ABSOLUTE 0.01 10/3/uL (0.0-0.16); EOSINOPHILS 4.3 %; EOSINOPHILS ABSOLUTE 0.21 10/3/uL (0.0-0.53); HEMATOCRIT 23.7 % (36.0-48.0); IMMATURE GRANULOCYTES 0.6 %; IMMATURE GRANULOCYTES ABSOLUTE 0.03 10/3/uL (0.0-0.11); LYMPHOCYTES ABSOLUTE 1.36 10/3/uL (0.67-4.30); MEAN CORPUS HGB CONC 33.8 g/dL (32.0-36.0); MEAN CORPUSCULAR HEMOGLOB 32.3 pg (26.0-34.0); MEAN CORPUSCULAR VOLUME 95.6 fL (80-100); MEAN PLATELET VOLUME 9.1 fL (9.2-13.0); MONOCYTES 12.3 %; NEUTROPHILS 54.6 %; NEUTROPHILS ABSOLUTE 2.65 10/3/uL (2.02-8.40); PLATELET COUNT 190 10/3/uL (150-400); RBC DISTRIBUTION WIDTH 18.5 % (12.0-16.0); RED CELL COUNT 2.48 10/6/uL (4.0-5.6); WHITE BLOOD CELLS 4.9 10/3/uL (4.5-10.5)
[2016-11-16 06:02] LABS: MANUAL DIFF NO %
[2016-11-16 06:14] LABS: BUN (BLOOD UREA NITROGEN) 19 MG/DL (6-23); CALCIUM, SERUM 8.7 MG/DL (8.5-10.4); CHLORIDE, SERUM 110 MMOL/L (96-112); CO2 (CARBON DIOXIDE) 24 MMOL/L (24-34); CREATININE 0.66 MG/DL (0.55-1.02); GFR AFRICAN AMERICAN 105 ML/MIN (>=60); GFR NON AFRICAN AMERICAN 91 ML/MIN (>=60); GLUCOSE, SERUM 94 MG/DL (60-99); SODIUM, SERUM 144 MMOL/L (135-148)
[2016-11-16 15:36] LABS: HEMATOCRIT 23.2 % (36.0-48.0); HEMOGLOBIN 7.6 g/dL (12.0-16.0)
[2016-11-17 06:34] LABS: BASOPHILS 0.4 %; BASOPHILS ABSOLUTE 0.02 10/3/uL (0.0-0.16); EOSINOPHILS 3.7 %; EOSINOPHILS ABSOLUTE 0.18 10/3/uL (0.0-0.53); HEMATOCRIT 23.9 % (36.0-48.0); HEMOGLOBIN 7.9 g/dL (12.0-16.0); IMMATURE GRANULOCYTES 0.6 %; IMMATURE GRANULOCYTES ABSOLUTE 0.03 10/3/uL (0.0-0.11); LYMPHOCYTES 30.5 %; MANUAL DIFF NO %; MEAN CORPUS HGB CONC 33.1 g/dL (32.0-36.0); MEAN CORPUSCULAR VOLUME 96.8 fL (80-100); MEAN PLATELET VOLUME 9.3 fL (9.2-13.0); MONOCYTES 9.2 %; MONOCYTES ABSOLUTE 0.45 10/3/uL (0.21-1.20); NEUTROPHILS 55.6 %; NEUTROPHILS ABSOLUTE 2.73 10/3/uL (2.02-8.40); PLATELET COUNT 207 10/3/uL (150-400); RBC DISTRIBUTION WIDTH 18.1 % (12.0-16.0); RED CELL COUNT 2.47 10/6/uL (4.0-5.6); WHITE BLOOD CELLS 4.9 10/3/uL (4.5-10.5)
[2016-11-17 08:02] LABS: ALBUMIN 3.4 G/DL (3.5-5.0); BUN (BLOOD UREA NITROGEN) 12 MG/DL (6-23); CALCIUM, SERUM 8.4 MG/DL (8.5-10.4); CHLORIDE, SERUM 107 MMOL/L (96-112); CO2 (CARBON DIOXIDE) 26 MMOL/L (24-34); CREATININE 0.74 MG/DL (0.55-1.02); GFR AFRICAN AMERICAN 96 ML/MIN (>=60); GFR NON AFRICAN AMERICAN 83 ML/MIN (>=60); GLOBULIN 3.3 G/DL (2.5-4.1); GLUCOSE, SERUM 94 MG/DL (60-99); POTASSIUM, SERUM 3.6 MMOL/L (3.5-5.3); SGOT(AST) 38 U/L (5-40); SGPT(ALT) 19 U/L (5-65); SODIUM, SERUM 143 MMOL/L (135-148); TOTAL BILIRUBIN 0.6 MG/DL (0-1.2); TOTAL PROTEIN 6.7 G/DL (6.0-8.5)
[2016-11-17 08:03] LABS: ALKALINE PHOSPHATASE 98 U/L (45-117)
[2016-11-25] MEDS ORDERED: ACET500CAP PO (17:47)
[2016-11-25] MEDS ORDERED: FISH OIL300 MG PO (17:48)
[2016-11-25] MEDS ORDERED: LUBRIFRESH OPH (17:49)
[2016-11-25] MEDS ORDERED: REFRESH OPH SO0.3 ML OPH (17:49)
== END 2016-11-17 16:00 | disposition home or self-care (01) | DRG 345 ==
LOC: ER 22:56 → 2SO 23:39
PROVIDERS: Emergency Medicine; Hospitalist; Internal Medicine; Internal Medicine Gastroenterology; Nurse Practitioner Family
PROC: 30233N1 Transfusion of Nonautologous Red Blood Cells into Peripheral Vein, Percutaneous Approach (ICD-10-PCS; 2016-11-10)
PROC: 0DJ08ZZ Inspection of Upper Intestinal Tract, Via Natural or Artificial Opening Endoscopic (ICD-10-PCS; 2016-11-12)
PROC: 0DJ08ZZ Inspection of Upper Intestinal Tract, Via Natural or Artificial Opening Endoscopic (ICD-10-PCS; 2016-11-13)
PROC: 0W3P8ZZ Control Bleeding in Gastrointestinal Tract, Via Natural or Artificial Opening Endoscopic (ICD-10-PCS; 2016-11-16)
PROC: 0D5A8ZZ Destruction of Jejunum, Via Natural or Artificial Opening Endoscopic (ICD-10-PCS; principal; 2016-11-16 12:30)
DX: K55.21 Angiodysplasia of colon with hemorrhage (principal); D62 Acute posthemorrhagic anemia; Z99.81 Dependence on supplemental oxygen; I42.2 Other hypertrophic cardiomyopathy; I10 Essential (primary) hypertension; E78.5 Hyperlipidemia, unspecified; G47.33 Obstructive sleep apnea (adult) (pediatric); K21.9 Gastro-esophageal reflux disease without esophagitis; E66.9 Obesity, unspecified; Z95.810 Presence of automatic (implantable) cardiac defibrillator; Z88.0 Allergy status to penicillin; Z88.6 Allergy status to analgesic agent; Z88.2 Allergy status to sulfonamides; Z68.31 Body mass index [BMI] 31.0-31.9, adult
CPT/HCPCS: 36415; 71010; 80048; 80053; 80069; 82272; 83735; 84100; 84484; 85014; 85018; 85025; 85610; 85730; 86850; 86870; 86900; 86901; 86902; 86904; 86905; 86920; 86922; 93005; 96374; 99285; A9270-GY; C8929; C9113; J1940; J2405; P9016; Q9957

== ENCOUNTER 2016-11-25 18:36 | Inpatient (IN) | payer MEDICARE ==
--- NOTE | ~2016-11-25 | DS ---
Discharge Summary [facility] [address] [place]. [address] NAME: MINDA QUIROGA : [birth year] STATUS : DIS IN PAT#: [id number] AGE: 70 ADM/REG DATE : 11/25/16 MR#: [id number] REPORT SERV DATE: 12/01/16 DICTATED BY: IVAN PATRICK DATE: 11/30/16 REPORT STATUS : Draft TRANSCRIBED BY: MODL DATE: 11/30/16 ADMISSION DATE: 11/25/2016 DISCHARGE DATE: 11/30/2016 REASON FOR ADMISSION: Shortness of breath and anemia. DISCHARGE DIAGNOSES: 1. Symptomatic anemia. 2. Iron deficiency anemia. 3. Hypertension. 4. Obstructive sleep apnea with CPAP. 5. Hypertrophic cardiomyopathy with AICD. SUMMARY: Please see admission H and P from Dr. Underwood on 11/25/2016, and an interim discharge summary from Shalom Joy on 11/29/2016, for full details on admission and hospital stay. I picked up the patient today on the . No changes with the patient. She received her final dose of IV iron and hemoglobin is stable. Her shortness of breath has resolved during the stay and she is stable for discharge. DISCHARGE MEDICATIONS: 1. Omeprazole 20 mg p.o. at bedtime. 2. Lopid 600 mg p.o. b.i.d. 3. Aspirin 81 mg p.o. daily. 4. Potassium chloride 20 mEq p.o. p.r.n. 5. Lasix 40 mg p.o. p.r.n. 6. Ultram 50 mg p.o. b.i.d. p.r.n. 7. Vitamin D3, 1000 units p.o. daily. 8. Miladis 180 mg p.o. daily. 9. Vitamin C 500 mg p.o. daily. 10.Vitamin B12, 500 mcg p.o. daily. 11.Fish oil 300 mg p.o. daily. 12.Atenolol 25 mg p.o. at bedtime. Of note, the patient's blood pressures were noted to be low in the mornings while she has been here, so we decreased her atenolol from 50 mg p.o. at bedtime to 25 mg p.o. at bedtime going home. DISCHARGE PLAN: The patient is discharged home. Follow up with primary care in one to two weeks and REJI Roman in two to three weeks. CAL/DARRIONL Ivan Patrick APN / [id number] Discharge Summary [address] [address] NAME: MINDA QUIROGA : [birth year] STATUS : DIS IN PAT#: [id number] AGE: 70 ADM/REG DATE : 11/25/16 MR#: [id number] REPORT SERV DATE: 12/01/16 DICTATED BY: IVAN PATRICK DATE: 11/30/16 REPORT STATUS : Draft TRANSCRIBED BY: ANA DATE: 11/30/16 CC: Duncan Scott M.D. Colleen Schmitt, M.D.
--- NOTE | ~2016-11-25 | HP ---
History And Physical [facility] [address] [place]. [address] NAME: MINDA QUIROGA : [birth year] STATUS : ADM IN [facility]#: [id number] AGE: 70 ADM/REG DATE : 11/25/16 MR#: [id number] REPORT SERV DATE: 11/25/16 DICTATED BY: CARLEY CASTRO DATE: 11/25/16 REPORT STATUS : Draft TRANSCRIBED BY: ANA DATE: 11/25/16 DATE OF ADMISSION: 11/25/2016 CHIEF COMPLAINT: Shortness of breath. HISTORY OF PRESENT ILLNESS: This is a 70-year-old female with medical history significant for hypertension, hyperlipidemia, hypertrophic cardiomyopathy, status post AICD insertion, history of recurrent GI bleed secondary to AVMs , who was recently discharged from the hospital on 11/18/2016. In the last admission, the patient was admitted for symptomatic anemia and GI bleed. During that admission, the patient was found to have AVMs in the small bowel and the patient underwent an extensive evaluation during the last admission with an upper endoscopy. A video endoscopy which confirms AVM and subsequently enteroscopy, where the AVMs was cauterized and clipped. The patient was subsequently discharged home in a stable condition. At the time of discharge, the patient's hemoglobin was 7.9. The patient reports that she was feeling well at home until three days prior to presentation where she noticed progressive worsening shortness of breath on exertion. She went to her primary care physician for followup where CBC was repeated and was noted to be 6.7. The patient was subsequently advised to come to the emergency room for further evaluation. The patient denied any melena, hematochezia, hematemesis, or bleeding from any other orifices. The patient reports that she has been taking iron pills at home. She denied any associated chest pain, palpitation, orthopnea, PND, presyncope or syncopal episode. PAST MEDICAL HISTORY: 1. Hypertension. 2. Hyperlipidemia. 3. Diverticulosis. 4. Recurrent GI bleed secondary to AVMs. 5. Obstructive sleep apnea. 6. Morbid obesity. 7. Hypertrophic cardiomyopathy, status post AICD insertion. PAST SURGICAL HISTORY: 1. Back surgery. 2. Abdominal hysterectomy. 3. Cataract surgery. 4. AICD placement. ALLERGIES: PENICILLIN , MORPHINE, AND IBUPROFEN. HOME MEDICATIONS: 1. Atenolol 50 mg p.o. at bedtime. 2. Omeprazole 20 mg at bedtime. 3. Gemfibrozil 600 mg p.o. b.i.d. 4. Aspirin 81 mg p.o. every morning. 5. K-Dur 20 mEq p.o. daily. 6. Lasix 40 mg p.o. daily. History And Physical [address] [address] NAME: MINDA QUIROGA : [birth year] STATUS : ADM IN [facility]#: [id number] AGE: 70 ADM/REG DATE : 11/25/16 MR#: [id number] REPORT SERV DATE: 11/25/16 DICTATED BY: CARLEY CASTRO DATE: 11/25/16 REPORT STATUS : Draft TRANSCRIBED BY: ANA DATE: 11/25/16 7. Tramadol 50 mg p.o. b.i.d. 8. Vitamin D3 1000 unit p.o. every morning. 9. Miladis 180 mg p.o. every morning. 10.Zofran 4 mg p.o. as needed. 11.Promethazine 25 mg p.o. daily. 12.Vitamin B12 250 mcg tablet p.o. daily. 13.Acetaminophen p.o. daily as needed. 14.[place]-3 fatty acid 300 mg capsule p.o. daily. 15.Artificial tears daily. 16.Artificial tear ointment to apply at bedtime. SOCIAL HISTORY: Denies smoking cigarettes, drinking alcohol, or illicit drug use. FAMILY HISTORY: Significant for CVA in the mother. Father with extensive history of coronary artery disease. REVIEW OF SYSTEMS: A 12-point review of systems performed, essentially negative. Positive findings as per HPI. PHYSICAL EXAMINATION: VITAL SIGNS: Blood pressure 103/55, pulse 97 beats per minute, temperature 98.6, saturating 98% on room air. GENERAL: In any obvious respiratory distress. Not in any pain distress. HEENT: Normocephalic, atraumatic. Extraocular muscles intact. Pupils equal, round, and reactive. Anicteric. Not pale. Oral mucosa moist. NECK: Supple. No JVD. CHEST: Equal expansion. Nontender. LUNGS: Clear to auscultation bilaterally. No wheezes. No rhonchi. No crackles. CARDIOVASCULAR: Regular rate and rhythm. S1, S2. Grade 3/4 systolic murmur noted. ABDOMEN: Obese. Bowel sounds normoactive. Nontender. No palpably enlarged organomegaly. EXTREMITIES: No pedal edema. NEURO: Alert and oriented x3. Cranial nerves 2 through 12 intact. Strength in all extremities, 5/5. LABORATORY DATA: Chemistry: Serum sodium 142, potassium 3.6, chloride 108, bicarb 24, creatinine 0.88, BUN 18, glucose 95. Hematology: WBC 5.5, hemoglobin 7.3, hematocrit 20, platelet 231. INR 1.1. Hb A1c 5.5. Chest x-ray ordered ASSESSMENT: 1. Symptomatic anemia. 2. History of recurrent gastrointestinal bleed secondary to arteriovenous malformation. 3. Hypertrophic cardiomyopathy, status post AICD placement. 4. Hypertension. 5. Obstructive sleep apnea, on CPAP. History And Physical [address] [address] NAME: MINDA QUIROGA : [birth year] STATUS : ADM IN [facility]#: [id number] AGE: 70 ADM/REG DATE : 11/25/16 MR#: [id number] REPORT SERV DATE: 11/25/16 DICTATED BY: CARLEY CASTRO DATE: 11/25/16 REPORT STATUS : Draft TRANSCRIBED BY: ANA DATE: 11/25/16 PLAN: 1. Symptomatic anemia. The patient was noted at the primary care physician's office to have a hemoglobin of 6.7, although on evaluation in the ER, repeat hemoglobin is 7.3. The patient is actively having shortness of breath, on both exertion and on minimal exertion concerning for symptomatic anemia. I will go ahead and transfuse the patient one unit of packed red blood cells. Etiology of anemia likely related to the patient's known history of GI bleed. I spoke with Dr. Pelayo, who is media sales consultant for Dr. Barreto's office. Per the GI team, the patient will likely undergo a double balloon enteroscopy at [facility]. The plan at this time is to continue PPI IV fluid resuscitation as needed. Transfuse the patient as needed. 2. Hypertrophic cardiomyopathy. The patient is status post AICD. No chest pain. We will avoid any vasodilator medication and patient is euvolemic. 3. Hypertension. We will recommend the patient's blood pressure medications. 4. Obstructive sleep apnea. The patient will continue CPAP during the course of this admission. 5. Admission status, inpatient. 6. Code status. Full code. 7. DVT prophylaxis contraindicated due to active bleeding. 8. Admission disposition, Cardiac Tele Monitoring Unit. The patient to be followed by the Hospitalist Service during the course of this admission. IOO/MODL Carley Castro MD / [id number] CC: MD Meka Max M.D.
--- NOTE | ~2016-11-25 | IDS ---
Interim Discharge Summary [facility] [address] [place]. [address] NAME: MINDA QUIROGA : [birth year] STATUS : ADM IN [facility]#: [id number] AGE: 70 ADM/REG DATE : 11/25/16 MR#: [id number] REPORT SERV DATE: 11/29/16 DICTATED BY: DATE: REPORT STATUS : Draft TRANSCRIBED BY: MODL DATE: 11/29/16 ADMISSION DATE: 11/25/2016 DISCHARGE DATE: INTERIM DISCHARGE DIAGNOSES: 1. Symptomatic anemia. 2. Hypertrophic cardiomyopathy with AICD. 3. Hypertension. 4. Obstructive sleep apnea with CPAP therapy. CONSULTING PHYSICIANS: Include Dr. Brannon Chinchilla, with [facility]. IMAGING: Includes a chest x-ray, PA and lateral which showed mild basilar atelectasis. Otherwise, no acute cardiopulmonary abnormality was appreciated. PROCEDURES: An upper endoscopy performed by Dr. Fredis Pleitez. No acute bleeding was noted. A single scar was found in the proximal jejunum from prior endoscopy that did not find a source of bleeding. For full H and P, please refer to Dr. Carley Underwood, dictation on 11/25/2016. HOSPITAL COURSE/PROBLEM LIST: 1. Symptomatic anemia. The patient received one unit of packed red blood cells on 11/26/2016. Her H and H were 7.3 and 23.5. After transfusion, it came up to 8.2 and 25.5, and yesterday was 8.6 and 27.7. The patient has not shown any signs and symptoms of active bleeding. No melena, hematochezia, hematemesis noted. I did check iron studies after the patient's blood transfusion. Her serum iron is 44, TIBC was 429, ferritin was 38. Therefore, I started IV iron, Nulecit infusions. She will get a total of 7 doses of those, she has gotten five so far. She can be discharged after the seventh which I believe is tomorrow on 11/30/2016 at noon. 2. Hypertrophic cardiomyopathy with AICD, this is stable at this time. 3. Hypertension. The patient's blood pressure has been controlled since she has been in the hospital. She is on Tenormin 50 mg p.o. daily. 4. Obstructive sleep apnea with CPAP. Continue CPAP at night. The patient is hemodynamically stable and can safely be discharged tomorrow after her iron infusions are finished. She does need an appointment with Dr. Mi, in two to three weeks after discharge. CLR/MODL Wilmar Joy NP / [id number] Interim Discharge Summary [address] [place]. [address] NAME: MINDA QUIROGA : [birth year] STATUS : ADM IN PAT#: [id number] AGE: 70 ADM/REG DATE : 11/25/16 MR#: [id number] REPORT SERV DATE: 11/29/16 DICTATED BY: DATE: REPORT STATUS : Draft TRANSCRIBED BY: MODL DATE: 11/29/16 CC: MD Meka Short M.D.
--- NOTE | ~2016-11-25 | EGD ---
EGD REPORT [facility] [address] [place] [address] NAME: HORTENSIA AGUSTIN : [birth year] STATUS : ADM IN PAT#: [id number] AGE: 70 ADM/REG DATE : 11/25/16 MR#: [id number] REPORT SERV DATE: 11/26/16 DICTATED BY: WILFRIDO VALDES DATE: 11/26/16 REPORT STATUS : Draft TRANSCRIBED BY: [employer] DATE: 11/26/16 Endoscopy Center Patient Name: Hortensia Agustin Date of : 1945 Attending MD: WILFRIDO VALDES, Procedure Date No Time: 11/26/2016 Procedure: Small bowel enteroscopy Indications: Obscure gastrointestinal bleeding Referring MD: GALO CAN MD Medicines: Monitored Anesthesia Care Complications: No immediate complications. Estimated blood loss: None. Procedure: Pre-Anesthesia Assessment: - ASA Grade Assessment: IV - A patient with severe systemic disease that is a constant threat to life. After obtaining informed consent, the endoscope was passed under direct vision. Throughout the procedure, the patient's blood pressure, pulse, and oxygen saturations were monitored continuously. The PCF H190L [id number] was introduced through the mouth and advanced to the proximal jejunum. The small bowel enteroscopy was accomplished without difficulty. The patient tolerated the procedure well. Findings: The esophagus was normal. The stomach was normal. The examined duodenum was normal. A single scar was found in the proximal jejunum from prior APC. No stigmata and no blood anywhere in the GI tract. Exam of the jejunum was otherwise normal. The cardia and gastric fundus were normal on retroflexion. Impression: - Normal esophagus. - Normal stomach. - Normal examined duodenum. - Jejunal scar. Recommendation: - Return to previous diet. - Continue present medications. - If she hasn't received recently would give IV iron. Regular diet. - Continue present medications. Procedure Code(s): --- Professional --- 69933, Small intestinal endoscopy, enteroscopy beyond EGD REPORT [facility] [address] [place]. [address] NAME: HORTENSIA AGUSTIN : [birth year] STATUS : ADM IN [facility]#: [id number] AGE: 70 ADM/REG DATE : 11/25/16 MR#: [id number] REPORT SERV DATE: 11/26/16 DICTATED BY: WILFRIDO VALDES DATE: 11/26/16 REPORT STATUS : Draft TRANSCRIBED BY: [employer] DATE: 11/26/16 second portion of duodenum, not including ileum; diagnostic, with or without collection of specimen(s) by brushing or washing (separate procedure) Diagnosis Code(s): --- Professional --- K63.89, Other specified diseases of intestine K92.2, Gastrointestinal hemorrhage, unspecified CPT copyright 2013 [employer]. All rights reserved. The codes documented in this report are preliminary and upon cultural centre manager review may be revised to meet current compliance requirements. WILFRIDO VALDES, 11/26/2016 10:32 AM Number of Addenda: 0 Note Initiated On: 11/26/2016 10:04 AM Scope Withdrawal Time 0 hours 0 minutes 0 seconds [address] [facility] [place] [address]
--- NOTE | ~2016-11-25 | CN ---
Consultation Report [facility] [address] [place]. [address] NAME: MINDA AGUSTIN : [birth year] STATUS : ADM IN PAT#: [id number] AGE: 70 ADM/REG DATE : 11/25/16 MR#: [id number] REPORT SERV DATE: 11/26/16 DICTATED BY: FREDIS PLEITEZ DATE: 11/26/16 REPORT STATUS : Draft TRANSCRIBED BY: MODL DATE: 11/26/16 CONSULTATION DATE OF CONSULTATION: 11/26/2016 REASON FOR CONSULTATION: Fatigue and possible GI bleeding. HISTORY OF PRESENT ILLNESS: Ms Agustin is a 70-year-old, who was recently admitted with persistent melena and post hemorrhagic anemia. She eventually underwent a small bowel enteroscopy where she is noted to have active bleeding in the proximal jejunum. This was cauterized and clipped, and the bleeding stops. She was then discharged and noted to have a drop. She began to feel short of breath, was noted have a drop in her hemoglobin, which was 7.9 on discharge, and apparently was seen by her PCP, and it was noted to be 6.7. The patient denies any black stools or loose stools. She has been having one bowel movement per day since her discharge. PAST MEDICAL HISTORY: Otherwise includes diverticulosis, obstructive sleep apnea, obesity, and cardiomyopathy with AICD. HOME MEDICATIONS: Included acetaminophen, ascorbic acid, aspirin, atenolol, cyanocobalamin, fexofenadine, furosemide, gemfibrozil, omeprazole, ondansetron, potassium, and Ultram. ALLERGIES: SHE IS ALLERGIC TO PENICILLIN, MORPHINE, AND IBUPROFEN. SOCIAL HISTORY: She does not smoke or drink. FAMILY HISTORY: Noncontributory. REVIEW OF SYSTEMS: A 14-point review of systems was reviewed, was notable for fatigue and shortness of breath. Otherwise, a 14-point review of systems was reviewed, and otherwise negative unless mentioned in the HPI. PHYSICAL EXAMINATION: VITAL SIGNS: Revealed temperature of 98.4, heart rate of 69, respiratory rate 18, and blood pressure 106/61. GENERAL: The patient lying in bed, in no apparent distress. HEENT: Head is atraumatic and normocephalic. Sclerae anicteric. Conjunctivae clear. NECK: Revealed no crepitus or thyromegaly. LUNGS: Clear to auscultation bilaterally. CARDIOVASCULAR: Regular rate and rhythm. ABDOMEN: Nontender. Nondistended. There is no guarding or rebound. EXTREMITIES: Revealed no clubbing, cyanosis, or edema. SKIN: Revealed no skin lesions or palpable nodules. Consultation Report [facility] [address] [place]. [address] NAME: MINDA AGUSTIN : [birth year] STATUS : ADM IN PAT#: [id number] AGE: 70 ADM/REG DATE : 11/25/16 MR#: [id number] REPORT SERV DATE: 11/26/16 DICTATED BY: FREDIS PLEITEZ DATE: 11/26/16 REPORT STATUS : Draft TRANSCRIBED BY: MODL DATE: 11/26/16 PSYCHIATRIC: She is alert and oriented x3. LABORATORY VALUES: Notable for hemoglobin of 7.3, and it continued to be witnessed, it was checked twice and had not fallen. Of note, the patient did not receive blood as she had too many antibodies. IMPRESSION: Drop in hemoglobin with recent history of gastrointestinal bleed. May be a post hemorrhagic anemia. Although, she does not have overt signs of gastrointestinal bleeding. Because of the significant bleeding from the jejunum, we will proceed with repeat upper enteroscopy to make sure this area is not continuing to bleed, otherwise we will follow her hemoglobin. We will need to review her history and see if she received IV iron. If she has not, this would be reasonable. Thank you for allowing me to evaluate the patient. Please do no hesitate to contact me should you have any further concerns or questions. GO/MODL Fredis Pleitez MD / [id number] CC: MD Meka Max M.D.
[2016-11-25 15:18] LABS: BASOPHILS 0.4 %; BASOPHILS ABSOLUTE 0.02 10/3/uL (0.0-0.16); EOSINOPHILS 3.1 %; EOSINOPHILS ABSOLUTE 0.17 10/3/uL (0.0-0.53); ER CBC TAT 0 Hrs 05 Mins; HEMOGLOBIN 7.3 g/dL (12.0-16.0); IMMATURE GRANULOCYTES 0.7 %; IMMATURE GRANULOCYTES ABSOLUTE 0.04 10/3/uL (0.0-0.11); LYMPHOCYTES 28.6 %; LYMPHOCYTES ABSOLUTE 1.58 10/3/uL (0.67-4.30); MANUAL DIFF NO %; MEAN CORPUS HGB CONC 31.7 g/dL (32.0-36.0); MEAN CORPUSCULAR HEMOGLOB 30.5 pg (26.0-34.0); MEAN CORPUSCULAR VOLUME 96.2 fL (80-100); MEAN PLATELET VOLUME 8.8 fL (9.2-13.0); MONOCYTES 9.8 %; MONOCYTES ABSOLUTE 0.54 10/3/uL (0.21-1.20); NEUTROPHILS 57.4 %; NEUTROPHILS ABSOLUTE 3.18 10/3/uL (2.02-8.40); PLATELET COUNT 231 10/3/uL (150-400); RBC DISTRIBUTION WIDTH 17.6 % (12.0-16.0); RED CELL COUNT 2.39 10/6/uL (4.0-5.6); WHITE BLOOD CELLS 5.5 10/3/uL (4.5-10.5)
[2016-11-25 15:25] LABS: INTERNATIONAL NORMAL RATI 1.1 UNITS (-); PARTIAL THROMBO TIME 30.9 SEC (22.5-37.2); PROTIME (NOT ORD) 14.4 SEC (12.0-14.5)
[2016-11-25 15:32] LABS: A/G RATIO 0.9 (0.7-1.9); ALBUMIN 3.4 G/DL (3.5-5.0); CALCIUM, SERUM 8.2 MG/DL (8.5-10.4); CHLORIDE, SERUM 108 MMOL/L (96-112); CO2 (CARBON DIOXIDE) 24 MMOL/L (24-34); CREATININE 0.88 MG/DL (0.55-1.02); GFR AFRICAN AMERICAN 78 ML/MIN (>=60); GFR NON AFRICAN AMERICAN 68 ML/MIN (>=60); GLOBULIN 3.7 G/DL (2.5-4.1); GLUCOSE, SERUM 95 MG/DL (60-99); POTASSIUM, SERUM 3.6 MMOL/L (3.5-5.3); SGOT(AST) 45 U/L (5-40); SGPT(ALT) 17 U/L (5-65); SODIUM, SERUM 142 MMOL/L (135-148); TOTAL BILIRUBIN 0.4 MG/DL (0-1.2); TOTAL PROTEIN 7.1 G/DL (6.0-8.5)
[2016-11-25 15:33] LABS: ALKALINE PHOSPHATASE 119 U/L (45-117); BUN (BLOOD UREA NITROGEN) 18 MG/DL (6-23)
[2016-11-25 18:15] LABS: TROPONIN I 0.04 NG/ML (<0.05)
[~2016-11-25 18:36] MED LIST changes: +ASAB PO; +B12250T PO; +DORYX100 MG PO; +KDUR20 PO; +LUBRIFRESH OPH; +REFRESH OPH SO0.3 ML OPH
[2016-11-25 21:44] LABS: FREE T4 0.88 NG/DL (0.76-1.46); PHOSPHORUS, SERUM 3.7 MG/DL (2.5-4.5)
[2016-11-26 05:41] LABS: BASOPHILS 0.2 %; BASOPHILS ABSOLUTE 0.01 10/3/uL (0.0-0.16); EOSINOPHILS 3.5 %; EOSINOPHILS ABSOLUTE 0.18 10/3/uL (0.0-0.53); HEMATOCRIT 23.5 % (36.0-48.0); HEMOGLOBIN 7.3 g/dL (12.0-16.0); IMMATURE GRANULOCYTES 0.4 %; IMMATURE GRANULOCYTES ABSOLUTE 0.02 10/3/uL (0.0-0.11); LYMPHOCYTES 35.4 %; LYMPHOCYTES ABSOLUTE 1.84 10/3/uL (0.67-4.30); MEAN CORPUS HGB CONC 31.1 g/dL (32.0-36.0); MEAN CORPUSCULAR HEMOGLOB 30.4 pg (26.0-34.0); MEAN CORPUSCULAR VOLUME 97.9 fL (80-100); MEAN PLATELET VOLUME 9.3 fL (9.2-13.0); MONOCYTES ABSOLUTE 0.57 10/3/uL (0.21-1.20); NEUTROPHILS 49.5 %; NEUTROPHILS ABSOLUTE 2.58 10/3/uL (2.02-8.40); PLATELET COUNT 239 10/3/uL (150-400); RBC DISTRIBUTION WIDTH 17.9 % (12.0-16.0); WHITE BLOOD CELLS 5.2 10/3/uL (4.5-10.5)
[2016-11-26 05:45] LABS: MANUAL DIFF NO %
[2016-11-26 05:52] LABS: ALBUMIN 3.2 G/DL (3.5-5.0); BUN (BLOOD UREA NITROGEN) 18 MG/DL (6-23); CALCIUM, SERUM 8.7 MG/DL (8.5-10.4); CHLORIDE, SERUM 111 MMOL/L (96-112); CO2 (CARBON DIOXIDE) 25 MMOL/L (24-34); CREATININE 0.78 MG/DL (0.55-1.02); GFR AFRICAN AMERICAN 91 ML/MIN (>=60); GFR NON AFRICAN AMERICAN 78 ML/MIN (>=60); GLUCOSE, SERUM 91 MG/DL (60-99); PHOSPHORUS, SERUM 4.4 MG/DL (2.5-4.5); POTASSIUM, SERUM 4.1 MMOL/L (3.5-5.3); SODIUM, SERUM 144 MMOL/L (135-148)
[2016-11-27 05:06] LABS: BASOPHILS 0.2 %; BASOPHILS ABSOLUTE 0.01 10/3/uL (0.0-0.16); EOSINOPHILS 2.9 %; EOSINOPHILS ABSOLUTE 0.13 10/3/uL (0.0-0.53); HEMATOCRIT 25.5 % (36.0-48.0); HEMOGLOBIN 8.2 g/dL (12.0-16.0); IMMATURE GRANULOCYTES 0.7 %; IMMATURE GRANULOCYTES ABSOLUTE 0.03 10/3/uL (0.0-0.11); LYMPHOCYTES 26.6 %; LYMPHOCYTES ABSOLUTE 1.21 10/3/uL (0.67-4.30); MEAN CORPUS HGB CONC 32.2 g/dL (32.0-36.0); MEAN CORPUSCULAR HEMOGLOB 30.8 pg (26.0-34.0); MEAN CORPUSCULAR VOLUME 95.9 fL (80-100); MEAN PLATELET VOLUME 9.3 fL (9.2-13.0); MONOCYTES 13.2 %; NEUTROPHILS 56.4 %; NEUTROPHILS ABSOLUTE 2.57 10/3/uL (2.02-8.40); PLATELET COUNT 216 10/3/uL (150-400); RBC DISTRIBUTION WIDTH 17.5 % (12.0-16.0); RED CELL COUNT 2.66 10/6/uL (4.0-5.6); WHITE BLOOD CELLS 4.6 10/3/uL (4.5-10.5)
[2016-11-27 05:09] LABS: MANUAL DIFF NO %
[2016-11-27 05:53] LABS: FOLATE 17.2 NG/ML (>5.2)
[2016-11-28 04:37] LABS: BASOPHILS 0.2 %; BASOPHILS ABSOLUTE 0.01 10/3/uL (0.0-0.16); EOSINOPHILS 3.5 %; EOSINOPHILS ABSOLUTE 0.19 10/3/uL (0.0-0.53); HEMATOCRIT 27.7 % (36.0-48.0); HEMOGLOBIN 8.6 g/dL (12.0-16.0); IMMATURE GRANULOCYTES 0.4 %; IMMATURE GRANULOCYTES ABSOLUTE 0.02 10/3/uL (0.0-0.11); LYMPHOCYTES 28.8 %; LYMPHOCYTES ABSOLUTE 1.56 10/3/uL (0.67-4.30); MEAN CORPUSCULAR HEMOGLOB 30.1 pg (26.0-34.0); MEAN CORPUSCULAR VOLUME 96.9 fL (80-100); MEAN PLATELET VOLUME 9.4 fL (9.2-13.0); MONOCYTES 10.3 %; MONOCYTES ABSOLUTE 0.56 10/3/uL (0.21-1.20); NEUTROPHILS 56.8 %; NEUTROPHILS ABSOLUTE 3.08 10/3/uL (2.02-8.40); PLATELET COUNT 225 10/3/uL (150-400); RBC DISTRIBUTION WIDTH 17.8 % (12.0-16.0); RED CELL COUNT 2.86 10/6/uL (4.0-5.6); WHITE BLOOD CELLS 5.4 10/3/uL (4.5-10.5)
[2016-11-28 04:39] LABS: MANUAL DIFF NO %
[2016-11-30] MEDS ORDERED: ATEN25 PO (11:26)
== END 2016-11-30 18:53 | disposition home or self-care (01) | DRG 812 ==
LOC: ER 18:36 → 7NO 19:43
PROVIDERS: Emergency Medicine; Hospitalist; Internal Medicine Gastroenterology; Nurse Practitioner Acute Care
PROC: 0DJ08ZZ Inspection of Upper Intestinal Tract, Via Natural or Artificial Opening Endoscopic (ICD-10-PCS; 2016-11-26)
PROC: 30233N1 Transfusion of Nonautologous Red Blood Cells into Peripheral Vein, Percutaneous Approach (ICD-10-PCS; principal; 2016-11-26 10:22)
DX: D50.9 Iron deficiency anemia, unspecified (principal); I42.2 Other hypertrophic cardiomyopathy; I10 Essential (primary) hypertension; G47.33 Obstructive sleep apnea (adult) (pediatric); E66.9 Obesity, unspecified; K63.89 Other specified diseases of intestine; Z95.810 Presence of automatic (implantable) cardiac defibrillator; Z87.891 Personal history of nicotine dependence; Z68.29 Body mass index [BMI] 29.0-29.9, adult; Z88.0 Allergy status to penicillin; Z88.5 Allergy status to narcotic agent; Z88.6 Allergy status to analgesic agent
CPT/HCPCS: 36415; 36430; 71020; 80053; 80069; 82272; 82607; 82728; 82746; 83540; 83550; 83735; 83880; 84100; 84439; 84443; 84484; 85025; 85610; 85730; 86850; 86870; 86900; 86901; 86902; 86920; 86922; 93005; 99285; A9270-GY; C9113; J2916; P9016

== ENCOUNTER 2017-05-13 09:40 | Observation (INO) | payer MEDICARE ==
[~2017-05-13] VITALS: Ht 167.6 cm; Wt 86.2 kg
--- NOTE | ~2017-05-13 | HP ---
History And Physical [facility] [address] [place]. [address] NAME: MINDA QUIROGA : [birth year] STATUS : ADM [place] PAT#: [id number] AGE: 71 ADM/REG DATE : 05/13/17 MR#: [id number] REPORT SERV DATE: 05/13/17 DICTATED BY: SCAR DONALDSON DATE: 05/13/17 REPORT STATUS : Draft TRANSCRIBED BY: MODL DATE: 05/13/17 DATE OF ADMISSION: 05/13/2017 REASON FOR ADMISSION: GI bleeding. HISTORY OF PRESENT ILLNESS: This is a 71-year-old white female, patient of Dr. Meka Ricci. She has known AVMs and IHSS. She went to see Dr. Ricci two or three days ago and had hematocrit drawn at 27.7. Dr. Ricci apparently discussed with Dr. Mi whether to admit or not. She was given some stool cards. The patient called Dr. Mi's office yesterday and was unclear on the answer given for the next course of action. She called this morning and was referred to Dr. Ricci. Dr. Ricci referred her to the emergency room. She was seen in the emergency room by Dr. Louis. Dr. Louis developed card that had had been given, all three are positive for blood. Her hematocrit had fallen to 27.1, and Hospitalist Service was now asked to admit the patient to the hospital for serial hemoglobin and possible transfusion, consultation with [facility] for possible EGD. The patient is asymptomatic. She is here earlier than she was in the past with previous GI bleeding and hematocrit was above 24 transfusion warranted given in the past. PAST MEDICAL HISTORY: Hospitalized for GI bleeding on 11/18 and 11/25/2016. She does have a longstanding history of hypertensive cardiomyopathy. From the echocardiogram description by Dr. Jacobo, it sounds like IHSS. She is on a beta-london for this. She does have a remote history of hypertension, hyperlipidemia, AICD, diverticulosis. She objects to having the diagnosis of obesity though her weight has not yet been measured to calculate the body mass index. She is followed by Dr. Joselito Thomas for obstructive sleep apnea. HOME MEDICATIONS: Include the following: Aspirin 81 mg p.o. daily; atenolol 25 mg p.o. daily; vitamin D 5000 units p.o. daily; B12 of 1000 mcg p.o. daily; ferrous sulfate 325 on Tuesday, Tuesday, Tuesday and is not turning her stool black; Miladis 180 mg p.o. daily; folic acid 400 mcg p.o. daily; furosemide 40 mg p.o. daily p.r.n. swelling; gemfibrozil 600 mg twice a day; omeprazole 20 mg at bedtime; Zofran 4 mg p.r.n. nausea; Systane eye drops 2 drops twice a day p.r.n.; Klor-Con 20 one p.o. p.r.n. swelling; promethazine p.r.n. nausea 25 mg; [place] nasal mist; and tramadol 50 mg b.i.d. p.r.n. pain. ALLERGIES: INCLUDE THE FOLLOWIN. PENICILLIN. 2. MORPHINE. 3. IBUPROFEN. SOCIAL HISTORY: She is . She lives in [place]. She lived on [facility] for over 20 years. She does not smoke cigarettes or take any alcohol. She attends [employer] and is best friends with Maria Alejandra, formerly Susanna. FAMILY HISTORY: Her mother of a stroke. Father had coronary artery disease. She had a sibling who of a stroke. History And Physical [address] [place]. [address] NAME: MINDA QUIROGA : [birth year] STATUS : ADM [place] PAT#: [id number] AGE: 71 ADM/REG DATE : 05/13/17 MR#: [id number] REPORT SERV DATE: 05/13/17 DICTATED BY: SCAR DONALDSON DATE: 05/13/17 REPORT STATUS : Draft TRANSCRIBED BY: MODMike DATE: 05/13/17 REVIEW OF SYSTEMS: She has had some back surgery and abdominal hysterectomy, cataract surgery, and lens implant in the past. She has had no chest pain, shortness of breath. No fever, chills, night sweats. No hematemesis. No fits, seizures, convulsions, unilateral weakness, nausea, vomiting, or diarrhea. She does have melena as described but claims this was normal colored stool despite the iron prior to this episode. The remainder of the review of systems is negative. PHYSICAL EXAMINATION: VITAL SIGNS: Blood pressure 90/58 with a heart rate of 75, respiratory rate 18, afebrile. HEENT: EOMI. Sclerae clear. Conjunctivae pink. NECK: No bruit. CHEST: Clear to A and P. HEART: Regular S1, S2 with a low-pitched systolic murmur across the anterior precordium. ABDOMEN: Soft, nontender, protuberant. EXTREMITIES: Have no edema. Distal pulses are intact with dorsalis pedis and posterior tibial. NEUROLOGIC: She withdraws to plantar stimulation. Parts Order And Stock Clerk equal and symmetric bilaterally. Coordination intact. She has no tremor. She is symmetric and equal neurologically bilaterally. SKIN: Without rash, ecchymosis, or bruising. LYMPHATICS: There is no adenopathy palpable. BREASTS: Grossly without mass. LABORATORY DATA: Type and screen was done with A positive blood and antibody screen is pending. The CMP showed sodium 140, potassium 4.0, creatinine 0.84, BUN 22, calcium 8.2 with an albumin of 3.4. Liver tests were normal. Her hemoglobin was 9.3, hematocrit 27.1, platelets were 193,000, INR 1.0. ASSESSMENT: 1. Melena. 2. Upper gastrointestinal bleeding likely. 3. Idiopathic hypertrophic subaortic stenosis. 4. Hyperlipidemia. 5. History of diverticulosis. 6. AICD present. 7. Obstructive sleep apnea, on CPAP at home. PLAN: Serial hemoglobin and hematocrit, transfuse if necessary. The IV Protonix will be given 40 mg IV q.12 hours and we will consult [facility] for definitive procedure. JOSE/ANA Scar Donaldson M.D. History And Physical [address] [address] NAME: MINDA QUIROGA : [birth year] STATUS : ADM [place] PAT#: [id number] AGE: 71 ADM/REG DATE : 05/13/17 MR#: [id number] REPORT SERV DATE: 05/13/17 DICTATED BY: SCAR DONALDSON DATE: 05/13/17 REPORT STATUS : Draft TRANSCRIBED BY: MODL DATE: 05/13/17 / [id number] CC: Kuldeep Woamck M.D. MD Meka Garcia M.D. Colleen Schmitt, M.D. Vincent Viscomi, M.D., F.C.C.P.
--- NOTE | ~2017-05-13 | CN ---
Consultation Report [facility] [address] [place]. [address] NAME: MINDA AGUSTIN : [birth year] STATUS : ADM [place] PAT#: [id number] AGE: 71 ADM/REG DATE : 05/13/17 MR#: [id number] REPORT SERV DATE: 05/13/17 DICTATED BY: FANNIE SORTO DATE: 05/13/17 REPORT STATUS : Draft TRANSCRIBED BY: MODL DATE: 05/13/17 GI CONSULTATION DATE OF CONSULTATION: 05/13/2017 REASON FOR CONSULTATION: Evaluation and management of GI bleed, melena, history of upper GI bleed in the jejunal area. HISTORY OF PRESENT ILLNESS: Ms. Agustin is a 71-year-old female patient, who is known to Dr. Jenny Mi as well as she sees her nurse practitioner, Jose Maldonado in the office, who has a history of GI bleeding. She has a history of diverticulosis as well as AVMs. She has a history of bleeding in November of this year. 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 Pleitez on 11/26, that was successfully treated. She states that she has been doing well up until the last one to two weeks when she developed a head cold, taking Coricidin HBP. She developed black tarry stools while taking this medication with weakness, progressive shortness of breath, and fatigue. She saw her primary care physician, who obtained lab work and stated that her hemoglobin was lower than at last check. The patient denies any associated abdominal pain. She has had no heartburn, indigestion, trouble swallowing, weight loss, weight gain. No hematochezia. No constipation or diarrhea. I have discussed with the patient secondary to her last endoscopy findings and her current admission symptoms, we will plan on pursuing an EGD plus or minus small bowel enteroscopy tomorrow with Dr. Castro. It should be noted that she did have a small bowel capsule exam which was inconclusive in finding the bleeding area. She has a current hemoglobin of 9.3. She states her last dark stool was this morning. She has had clear liquids. I have discussed the risks, benefits, alternatives, and complications with her to include, but not limited to risk of bleeding, perforation, infection, reaction to medications, as well as cardiac and pulmonary side effects. She is agreeable to proceed. PAST MEDICAL HISTORY: She has a past medical history for recurrent upper GI bleed, small bowel AVMs, diverticulosis, colon polyps, hypertension, hyperlipidemia, sleep apnea, GERD, obesity, hypertrophic cardiomyopathy, cardiac murmur, status post AICD pacemaker, back surgery, abdominal hysterectomy, and cataract surgery. ALLERGIES: PENICILLIN, MORPHINE, AND IBUPROFEN. HOME MEDICATIONS: 1. Aspirin. 2. Tenormin. 3. Vitamin D. 4. Vitamin B12. 5. Ferrous sulfate. 6. Miladis. 7. Folic acid. Consultation Report [facility] [address] [place]. [address] NAME: MINDA AGUSTIN : [birth year] STATUS : ADM [place] PAT#: [id number] AGE: 71 ADM/REG DATE : 05/13/17 MR#: [id number] REPORT SERV DATE: 05/13/17 DICTATED BY: FANNIE SORTO DATE: 05/13/17 REPORT STATUS : Draft TRANSCRIBED BY: ANA DATE: 05/13/17 8. Lasix. 9. Lopid. 10.Prilosec. 11.Zofran. 12.Systane eye drops. 13.Klor-Con. 14.Phenergan. 15.[place] nasal spray. 16.Ultram. REVIEW OF SYSTEMS: A 10-point review of systems has been obtained with pertinent positives being addressed in the history of present illness. PHYSICAL EXAMINATION: VITAL SIGNS: Temperature 98.3, pulse is 77, respirations 15, blood pressure 102/59. NEUROLOGIC: Alert female, resting in bed. No obvious focal deficits noted. GENERAL: She is cooperative. She is in no acute distress. Awake, alert, and oriented x3. HEAD, EARS, EYES, NOSE, AND THROAT: Anicteric. Pupils equal, round, reactive to light and accommodation. Normocephalic and atraumatic. NECK: Supple with no JVD. No palpable nodes. LUNGS: Diminished in the bases. Clear in the upper lobes. Normal respiratory effort exhibited. Equal expansion. CARDIOVASCULAR SYSTEM: Regular rate and rhythm, 3/6 murmur auscultated without rubs or gallops. ABDOMEN: Soft, obese, nondistended, nontender. No rebound or guarding elicited on exam. EXTREMITIES: She has no edema. Normal distal pulses. SKIN: Warm, dry, and intact. PERTINENT LABORATORY DATA: Sodium is 140, potassium is 4.0, BUN is 22, creatinine is 0.84. LFTs are normal. White blood cell count 7.1, hemoglobin 9.3, hematocrit 27.1. ASSESSMENT: 1. Melena with gastrointestinal bleed. She has a history of jejunal arteriovenous malformation bleed in 11/2016, status post cauterization, suspect this could be the cause. 2. Anemia, acute on chronic, unsure of what her last hemoglobin with primary care is, currently it is 9.2. 3. Weakness, shortness of breath. 4. Recent head cold. 5. History of hypertrophic cardiomyopathy. PLAN: 1. EGD with small bowel enteroscopy on 05/14/[address] Castro. 2. Clear liquid diet, n.p.o. after midnight. Consultation Report [facility] [address] [place]. [address] NAME: MINDA AGUSTIN : [birth year] STATUS : ADM [place] PAT#: [id number] AGE: 71 ADM/REG DATE : 05/13/17 MR#: [id number] REPORT SERV DATE: 05/13/17 DICTATED BY: FANNIE SORTO DATE: 05/13/17 REPORT STATUS : Draft TRANSCRIBED BY: ANA DATE: 05/13/17 3. Monitor H and H, transfuse if needed. 4. Other recommendations to follow endoscopy. DESIREE/ANA NELDA Dickinson / [id number] CC: Duncan Cruz M.D.
--- NOTE | ~2017-05-13 | EGD ---
EGD REPORT [facility] [address] [place] [address] NAME: HORTENSIA AGUSTIN : 49 STATUS : ADM [place] PAT#: [id number] AGE: 71 ADM/REG DATE : 05/13/17 MR#: [id number] REPORT SERV DATE: 05/14/17 DICTATED BY: DATE: REPORT STATUS : Draft TRANSCRIBED BY: [facility] DATE: 05/14/17 Endoscopy Center Patient Name: Hortensia Agustin Date of : 1945 Attending MD: RUEL DONALDSON MD Procedure Date No Time: 05/14/2017 Procedure: Small bowel enteroscopy Indications: Arteriovenous malformation in the small intestine Medicines: Monitored Anesthesia Care Complications: No immediate complications. Procedure: Pre-Anesthesia Assessment: - ASA Grade Assessment: III - A patient with severe systemic disease. After obtaining informed consent, the endoscope was passed under direct vision. Throughout the procedure, the patient's blood pressure, pulse, and oxygen saturations were monitored continuously. The PCF [id number] was introduced through the mouth and advanced to the distal jejunum. The small bowel enteroscopy was accomplished without difficulty. The patient tolerated the procedure well. Findings: The esophagus was normal. The stomach was normal. A single angioectasia with bleeding was found in the third part of the duodenum. To prevent bleeding post-intervention, two hemostatic clips were successfully placed. There was no bleeding at the end of the procedure. Of note, I was able to visualize the papilla to avoid clip placement in papilla region. The papilla was just proximal to the clip placement. If patient develops any abdominal pain, will need to check lipase and LFTs. There was no evidence of significant pathology in the afferent jejunal loop. Impression: - Normal esophagus. - Normal stomach. - A single bleeding angioectasia in the duodenum. Clips were placed. - The examined portion of the jejunum was normal. Recommendation: - Full liquid diet. - Return patient to [facility] for observation. Procedure Code(s): --- Professional --- EGD REPORT [facility] [id number] [place]. [address] NAME: HORTENSIA AGUSTIN : 49 STATUS : ADM [place] PAT#: [id number] AGE: 71 ADM/REG DATE : 05/13/17 MR#: [id number] REPORT SERV DATE: 05/14/17 DICTATED BY: DATE: REPORT STATUS : Draft TRANSCRIBED BY: [employer] DATE: 05/14/17 [id number], Small intestinal endoscopy, enteroscopy beyond second portion of duodenum, not including ileum; diagnostic, with or without collection of specimen(s) by brushing or washing (separate procedure) Diagnosis Code(s): --- Professional --- K31.811, Angiodysplasia of stomach and duodenum with bleeding Q27.33, Arteriovenous malformation of digestive system vessel CPT copyright 2013 [employer] [employer]. All rights reserved. The codes documented in this report are preliminary and upon drop forger helper review may be revised to meet current compliance requirements. RUEL DONALDSON MD 05/14/2017 10:08 AM Number of Addenda: 0 Note Initiated On: 05/14/2017 9:33 AM Scope Withdrawal Time 0 hours 0 minutes 0 seconds
--- NOTE | ~2017-05-13 | DS ---
Discharge Summary [facility] [address] [place]. [address] NAME: MINDA QUIROGA : [birth year] STATUS : DIS [place] PAT#: [id number] AGE: 71 ADM/REG DATE : 05/13/17 MR#: [id number] REPORT SERV DATE: 05/16/17 DICTATED BY: ATUL CHENG DATE: 05/15/17 REPORT STATUS : Draft TRANSCRIBED BY: MODL DATE: 05/15/17 ADMISSION DATE: 05/13/2017 DISCHARGE DATE: 05/15/2017 DISCHARGE DIAGNOSES: 1. Melena. 2. Gastrointestinal bleed with history of arteriovenous malformations. 3. Hypertensive cardiomyopathy. 4. Hyperlipidemia. 5. History of diverticulosis. 6. Obstructive sleep apnea with CPAP. CONSULTATIONS: Dr. Mi with GI. PROCEDURES AND IMAGING: On 05/14/2017, EGD with clips. HOSPITAL COURSE: Please refer to initial H and P by Dr. Johnson Castro on 05/13/2017 for complete details regarding the patient's admission. In brief, the patient was admitted by Dr. Castro for GI bleeding. The patient has a known history of AVMs. The patient had been having black tarry stools, which were positive for occult blood. The patient has had extensive history of GI bleed in the last year and a half. Please see consultation dictated by Anibal Espinoza on 05/13/2017 regarding the patient's history and management. The patient currently denies any complaint of pain, nausea, and vomiting. States has had several black tarry stools this morning. The patient denies complaint of nausea, vomiting, or weakness. PHYSICAL EXAMINATION: VITAL SIGNS: Blood pressure 129/68, respirations are 16, temp is 98.2, heart rate is 79, and O2 saturation is 98% on room air. HEENT: Head is atraumatic and normocephalic. Pupils are equal, round, reactive to light and accommodation. Sclerae are clear and nonicteric. NECK: Neck is supple with no obvious thyromegaly or lymphadenopathy. Neck veins are flat and trachea is midline. LUNGS: Clear to auscultation with normal respiratory effort, anteriorly and posteriorly. GI: Abdomen is soft and nontender with active bowel sounds in all four quadrants. Normal bowel habitus. No palpable organomegaly. EXTREMITIES: No significant edema, clubbing, or cyanosis. Dorsalis pedis and posterior tibial pulses are present and equal bilaterally. MUSCULOSKELETAL: Moves all extremities x4. Ambulatory without assistance. No difficulties with balance. SKIN: Skin is warm and dry with normal color and turgor. No unusual rashes or skin lesions. NEURO/PSYCH: The patient is alert and oriented x3, pleasant, and cooperative. Cranial nerves II through XII are grossly intact. Discharge Summary [facility] [address] [place]. [address] NAME: MINDA QUIROGA : [birth year] STATUS : DIS [place] PAT#: [id number] AGE: 71 ADM/REG DATE : 05/13/17 MR#: [id number] REPORT SERV DATE: 05/16/17 DICTATED BY: ATUL CHENG DATE: 05/15/17 REPORT STATUS : Draft TRANSCRIBED BY: ANA DATE: 05/15/17 The patient's hemoglobin has remained stable during this visit with current hemoglobin being 8.7, hematocrit 24.9, WBC 6.4, and platelets 208. DISCHARGE DIET: The patient will be going home on GI soft diet. DISCHARGE MEDICATIONS: Atenolol 25 mg daily; vitamin B12 1000 mcg daily; vitamin D 5000 units daily; ferrous sulfate 325 mg Tuesday, Tuesday, and Tuesday; folic acid 400 mcg daily; Lopid 600 mg twice daily; Protonix 40 mg daily; aspirin 81 mg daily; potassium chloride 20 mEq daily p.r.n. when she takes Lasix, Lasix 40 mg daily p.r.n. for edema; tramadol 50 mg twice daily p.r.n. pain, [place] two sprays in each nares p.r.n. for congestion; Miladis 180 mg daily; Zofran 4 mg daily p.r.n. nausea and vomiting; Phenergan 25 mg p.o. daily p.r.n. nausea and vomiting; and Systane two drops in both eyes daily p.r.n. ALLERGIES: THE PATIENT IS ALLERGIC TO PENICILLIN WHEN HER HANDS BECOME HOT; AND ADVERSE REACTION TO MORPHINE, SHE GETS FLUSHING; AND ADVIL, HAS BEEN INSTRUCTED TO AVOID SINCE HISTORY OF GI BLEED. DISCHARGE INSTRUCTIONS: The patient is to follow up with Dr. Mi next week and also to have an H and H done while she is at the office. Should the patient develop any more black tarry stools or bright red bleeding or have any abdominal pain or unusual nausea and vomiting, she is to call her GI doctor, her PCP, or present to the ER. Approximately, 25 minutes have been spent coordinating discharge care of this patient including [id number] encounter and summarization of the discharge. XOCHITL/DARRIONL Cathy Dunn, HOLLOW HANDLE KNIFE ASSEMBLER Atul Cheng M.D. / [id number] CC: Duncan Cruz M.D.
[2017-05-13 10:57] LABS: BASOPHILS 0.3 %; BASOPHILS ABSOLUTE 0.02 10/3/uL (0.0-0.16); EOSINOPHILS 4.6 %; EOSINOPHILS ABSOLUTE 0.33 10/3/uL (0.0-0.53); ER CBC TAT 0 Hrs 05 Mins; HEMATOCRIT 27.1 % (36.0-48.0); HEMOGLOBIN 9.3 g/dL (12.0-16.0); IMMATURE GRANULOCYTES 1.5 %; IMMATURE GRANULOCYTES ABSOLUTE 0.11 10/3/uL (0.0-0.11); LYMPHOCYTES 30.8 %; LYMPHOCYTES ABSOLUTE 2.19 10/3/uL (0.67-4.30); MEAN CORPUSCULAR VOLUME 98.5 fL (80-100); MEAN PLATELET VOLUME 8.5 fL (9.2-13.0); MONOCYTES 10.1 %; MONOCYTES ABSOLUTE 0.72 10/3/uL (0.21-1.20); NEUTROPHILS 52.7 %; NEUTROPHILS ABSOLUTE 3.73 10/3/uL (2.02-8.40); PLATELET COUNT 193 10/3/uL (150-400); RED CELL COUNT 2.75 10/6/uL (4.0-5.6); WHITE BLOOD CELLS 7.1 10/3/uL (4.5-10.5)
[2017-05-13 10:58] LABS: MANUAL DIFF NO %; MEAN CORPUS HGB CONC 34.3 g/dL (32.0-36.0); MEAN CORPUSCULAR HEMOGLOB 33.8 pg (26.0-34.0); RBC DISTRIBUTION WIDTH 13.5 % (12.0-16.0)
[2017-05-13 11:05] LABS: INTERNATIONAL NORMAL RATI 1.1 UNITS (-); PROTIME (NOT ORD) 14.3 SEC (12.0-14.5)
[2017-05-13 11:15] LABS: A/G RATIO 0.9 (0.7-1.9); ALBUMIN 3.4 G/DL (3.5-5.0); CALCIUM, SERUM 8.2 MG/DL (8.5-10.4); CHLORIDE, SERUM 110 MMOL/L (96-112); CO2 (CARBON DIOXIDE) 25 MMOL/L (24-34); CREATININE 0.84 MG/DL (0.55-1.02); GFR AFRICAN AMERICAN 82 ML/MIN (>=60); GFR NON AFRICAN AMERICAN 71 ML/MIN (>=60); GLOBULIN 3.6 G/DL (2.5-4.1); GLUCOSE, SERUM 79 MG/DL (60-99); SGOT(AST) 35 U/L (5-40); SGPT(ALT) 17 U/L (5-65); SODIUM, SERUM 140 MMOL/L (135-148); TOTAL BILIRUBIN 0.3 MG/DL (0-1.2)
[2017-05-13 11:16] LABS: ALKALINE PHOSPHATASE 86 U/L (45-117); BUN (BLOOD UREA NITROGEN) 22 MG/DL (6-23)
[2017-05-13] MEDS ORDERED: PRILO PO (12:03)
[2017-05-13] MEDS ORDERED: LOPID6 PO (12:03)
[2017-05-13] MEDS ORDERED: ATEN25 PO (12:03)
[2017-05-13] MEDS ORDERED: ASAB PO (12:04)
[2017-05-13] MEDS ORDERED: L40 PO (12:04)
[2017-05-13] MEDS ORDERED: KLOR-CON M2020 MEQ PO (12:04)
[2017-05-13] MEDS ORDERED: ULTRAM50 PO (12:05)
[2017-05-13] MEDS ORDERED: OCEAN NAS (12:05)
[2017-05-13] MEDS ORDERED: D 5000 PO (12:06)
[2017-05-13] MEDS ORDERED: ALLEGRA180 PO (12:06)
[2017-05-13] MEDS ORDERED: PR25 PO (12:07)
[2017-05-13] MEDS ORDERED: ZOFRAN4 PO (12:07)
[2017-05-13] MEDS ORDERED: FERROUS SULF325 M1 PO (12:08)
[2017-05-13] MEDS ORDERED: FOLIC ACID400 MC1 PO (12:08)
[2017-05-13] MEDS ORDERED: CYANO1000T PO (12:08)
[2017-05-13] MEDS ORDERED: SYSTANE OPH (12:09)
[2017-05-13 17:00] LABS: HEMATOCRIT 26.6 % (36.0-48.0); HEMOGLOBIN 9.2 g/dL (12.0-16.0)
[2017-05-13 23:31] LABS: HEMATOCRIT 25.4 % (36.0-48.0); HEMOGLOBIN 8.9 g/dL (12.0-16.0)
[2017-05-14 04:58] LABS: BASOPHILS 0.3 %; BASOPHILS ABSOLUTE 0.02 10/3/uL (0.0-0.16); EOSINOPHILS 6.6 %; EOSINOPHILS ABSOLUTE 0.43 10/3/uL (0.0-0.53); HEMATOCRIT 24.9 % (36.0-48.0); HEMOGLOBIN 8.8 g/dL (12.0-16.0); IMMATURE GRANULOCYTES 0.8 %; IMMATURE GRANULOCYTES ABSOLUTE 0.05 10/3/uL (0.0-0.11); LYMPHOCYTES 29.6 %; LYMPHOCYTES ABSOLUTE 1.94 10/3/uL (0.67-4.30); MEAN CORPUS HGB CONC 35.3 g/dL (32.0-36.0); MEAN CORPUSCULAR HEMOGLOB 35.1 pg (26.0-34.0); MEAN CORPUSCULAR VOLUME 99.2 fL (80-100); MEAN PLATELET VOLUME 8.8 fL (9.2-13.0); MONOCYTES 8.4 %; MONOCYTES ABSOLUTE 0.55 10/3/uL (0.21-1.20); NEUTROPHILS 54.3 %; NEUTROPHILS ABSOLUTE 3.56 10/3/uL (2.02-8.40); PLATELET COUNT 201 10/3/uL (150-400); RBC DISTRIBUTION WIDTH 13.2 % (12.0-16.0); RED CELL COUNT 2.51 10/6/uL (4.0-5.6); WHITE BLOOD CELLS 6.6 10/3/uL (4.5-10.5)
[2017-05-14 04:59] LABS: MANUAL DIFF NO %
[2017-05-14 05:03] LABS: INTERNATIONAL NORMAL RATI 1.1 UNITS (-)
[2017-05-14 05:07] LABS: CALCIUM, SERUM 8.5 MG/DL (8.5-10.4); CHLORIDE, SERUM 111 MMOL/L (96-112); CO2 (CARBON DIOXIDE) 27 MMOL/L (24-34); CREATININE 0.72 MG/DL (0.55-1.02); GFR AFRICAN AMERICAN 99 ML/MIN (>=60); GFR NON AFRICAN AMERICAN 85 ML/MIN (>=60); SODIUM, SERUM 142 MMOL/L (135-148)
[2017-05-14 05:09] LABS: BUN (BLOOD UREA NITROGEN) 16 MG/DL (6-23); GLUCOSE, SERUM 105 MG/DL (60-99)
[2017-05-14 21:50] LABS: HEMATOCRIT 24.1 % (36.0-48.0); HEMOGLOBIN 8.5 g/dL (12.0-16.0)
[2017-05-15 03:53] LABS: BASOPHILS 0.2 %; BASOPHILS ABSOLUTE 0.01 10/3/uL (0.0-0.16); EOSINOPHILS 3.9 %; EOSINOPHILS ABSOLUTE 0.25 10/3/uL (0.0-0.53); HEMATOCRIT 24.9 % (36.0-48.0); HEMOGLOBIN 8.7 g/dL (12.0-16.0); IMMATURE GRANULOCYTES 0.8 %; IMMATURE GRANULOCYTES ABSOLUTE 0.05 10/3/uL (0.0-0.11); LYMPHOCYTES 34.5 %; LYMPHOCYTES ABSOLUTE 2.21 10/3/uL (0.67-4.30); MEAN CORPUS HGB CONC 34.9 g/dL (32.0-36.0); MEAN CORPUSCULAR HEMOGLOB 34.8 pg (26.0-34.0); MEAN CORPUSCULAR VOLUME 99.6 fL (80-100); MEAN PLATELET VOLUME 8.8 fL (9.2-13.0); MONOCYTES 8.6 %; MONOCYTES ABSOLUTE 0.55 10/3/uL (0.21-1.20); NEUTROPHILS ABSOLUTE 3.34 10/3/uL (2.02-8.40); PLATELET COUNT 208 10/3/uL (150-400); RBC DISTRIBUTION WIDTH 13.6 % (12.0-16.0); WHITE BLOOD CELLS 6.4 10/3/uL (4.5-10.5)
[2017-05-15 03:56] LABS: MANUAL DIFF NO %
[2017-05-15 04:06] LABS: BUN (BLOOD UREA NITROGEN) 15 MG/DL (6-23); CHLORIDE, SERUM 109 MMOL/L (96-112); CO2 (CARBON DIOXIDE) 26 MMOL/L (24-34); CREATININE 0.88 MG/DL (0.55-1.02); GFR AFRICAN AMERICAN 78 ML/MIN (>=60); GFR NON AFRICAN AMERICAN 67 ML/MIN (>=60); GLUCOSE, SERUM 102 MG/DL (60-99); POTASSIUM, SERUM 3.8 MMOL/L (3.5-5.3); SODIUM, SERUM 142 MMOL/L (135-148)
[2017-05-15] MEDS ORDERED: PROTONIX PO (11:35)
== END 2017-05-15 12:08 | disposition home or self-care (01) ==
LOC: ER 09:40 → CDU1 11:36
PROVIDERS: Emergency Medicine; Internal Medicine; Internal Medicine Gastroenterology; Nurse Practitioner Family
PROC: 0W3P8ZZ Control Bleeding in Gastrointestinal Tract, Via Natural or Artificial Opening Endoscopic (ICD-10-PCS; principal; 2017-05-14 09:30)
DX: K31.811 Angiodysplasia of stomach and duodenum with bleeding (principal); Q27.33 Arteriovenous malformation of digestive system vessel; I11.9 Hypertensive heart disease without heart failure; I42.1 Obstructive hypertrophic cardiomyopathy; G47.33 Obstructive sleep apnea (adult) (pediatric); D64.9 Anemia, unspecified; E78.5 Hyperlipidemia, unspecified; Z79.82 Long term (current) use of aspirin; Z79.899 Other long term (current) drug therapy; Z88.0 Allergy status to penicillin; Z88.5 Allergy status to narcotic agent; Z88.8 Allergy status to other drugs, medicaments and biological substances; Z95.810 Presence of automatic (implantable) cardiac defibrillator; Z99.81 Dependence on supplemental oxygen
CPT/HCPCS: 36415; 80048; 80053; 83735; 85014; 85018; 85025; 85610; 85730; 86850; 86870; 86900; 86901; 93005; 96374; 96376; 99291; A9270-GY; C9113; G0378